=== PATIENT | female | born 1955 | race African-American/Black ===

== ENCOUNTER 2018-06-19 17:24 | Inpatient (IN) | payer OTHER ==
[~2018-06-19] VITALS: Ht 157.5 cm; Wt 140.4 kg
--- NOTE | ~2018-06-19 | H ---
[facility] [place] [address] HISTORY AND PHYSICAL Name: ANNE TSANG Room #: 464-P ADM IN M.R.#: [id number] Admission: 06/19/18 Attend Phys: Wally Hussein MD Discharge: Date of : 55 Report #: [id number] THIS REPORT FOR: //name// CC: Wally Hussein DATE OF SERVICE: 06/19/2018 CHIEF COMPLAINT: Continued nausea and abdominal pain despite being treated for diverticulitis. HISTORY OF PRESENT ILLNESS: She developed mid abdominal pain and went to the [facility] Emergency Room last week on 06/11/2018. She was diagnosed with acute early diverticulitis and given two oral antibiotics and hydrocodone. Since that time, she has remained nauseated and continues to throw up at times and not being able to eat. She continues to have the same abdominal pain that she had when in the Emergency Room. The only record available to me from that visit is a report of her abdominal CT scan that shows minimal early inflammatory changes within a specific sigmoid colonic diverticulum that was concerning for early acute diverticulitis. There was no pericolonic fluid collection or air to suggest a more advanced process. Colonic diverticulosis was seen. Her prescription bottles included metronidazole 500 mg 4 times daily for 7 days, which she has completed, and even after not having that medication today she still feels nauseated. Ciprofloxacin 500 mg twice daily and she has 3 more days' worth in her bottle. She was given hydrocodone 5/325, 20 tablets to take as needed for pain and that bottle is empty. Ondansetron 8 mg oral dissolving tablet and she has 1 left, it has not been helpful. In the office today she continues to have the same abdominal pain that she has had all along. It is in the mid epigastric area. It is constant. Her bowel movements are "pasty." The nausea is low level and persistent. PAST MEDICAL HISTORY: She has morbid obesity with a body mass index of 58.6, weighing 310 pounds and measured 5 feet 1-1/2 inches in the office today. She had an umbilical hernia repair. She had a total abdominal hysterectomy for uterine cancer in 1982. The hernia repair was in 05/2004 at [facility]. She has generalized arthritis in both knees (one has been operated on). She has right hip pain. She has hypertension and gout. She has had mildly elevated glucose and an elevated hemoglobin A1c of 6.0. 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 [address] [address] HISTORY AND PHYSICAL Name: ANNE TSANG Room #: 464-P [facility] IN .R.#: [id number] Admission: 06/19/18 Attend Phys: Wally Hussein MD Discharge: Date of : 55 Report #: [id number] History of stomach ulcer 30 years in the past. Cardiac catheterizations in 2004 and 2008 at [facility] were negative for coronary artery disease. Mildly chronically elevated alkaline phosphatase. Left knee meniscal root tear arthroscopy 10/28/2009. On 12/08/1999, right bunionectomy. SOCIAL HISTORY: She ordinarily drinks 5 cups of coffee daily, but has not been doing so since she has been ill. She quit smoking cigarettes 20 years ago in 1997. She very rarely has an alcoholic drink. FAMILY HISTORY: Of 8 brothers and sisters, she only has one remaining living sibling. Her father of colon cancer, her mother of a stroke, there is extensive family history of diabetes, hypertension, and strokes. She has three children that are doing well. REVIEW OF SYSTEMS: In addition to the HPI above, she last week had a "gout episode," which she treated by using her allopurinol on an as needed basis. She also complains of pain in the right little toe at the MTP joint. CURRENT MEDICATION LIST: Metronidazole 500 mg 4 times daily, a 7-day supply was finished yesterday; hydrocodone 5/325, #20 tablets and a 8-day supply finished several days ago, ciprofloxacin 500 mg twice daily; she has 3 more days of a 10-day supply left in her pill bottle. Ondansetron 8 mg ODT. Chronic medications: Furosemide 20 mg 1 daily, lisinopril 5 mg daily, triamterene 37.5/25 one daily, allopurinol 300 mg 1 daily should be taken routinely, but she currently takes it just when she is having a gout episode. Aleve, Tylenol, fish oil, and Advil tablets daily as needed. ALLERGIES: PENICILLIN CAUSES HIVES AND A RASH. OBJECTIVE: GENERAL: Shows a 62-year-old overweight -[place]er female who is definitely uncomfortable. VITAL SIGNS: She weighs 310 pounds, she is 5 feet 1-1/2 inches tall for a body mass index of 58.6. HEENT: The oropharynx is mildly dry. NECK: Negative. LUNGS: Clear. CARDIOVASCULAR: Heart tones are normal and the rhythm is regular. ABDOMEN: Morbidly obese. Bowel sounds are slightly diminished, but essentially normal. Over the epigastric area there is diffuse moderate tenderness to palpation, centered at the midline. Mild rebound tenderness is present as well. There does not seem to be point tenderness over the sigmoid colon, where her CT scan report indicated there was active diverticulitis on 06/11/2018. EXTREMITIES: There is mild edema of both lower extremities. The right [facility] [address] [place] [address] HISTORY AND PHYSICAL Name: ANNE TSANG Sheyla Room #: 464-P ADM IN .R.#: [id number] Admission: 06/19/18 Attend Phys: Wally Hussein MD Discharge: Date of : 55 Report #: [id number] toe MTP joint area is mildly tender, but otherwise examination of both feet is essentially normal and light touch and sensation is intact. NEUROLOGIC: Screening neurological examination is grossly intact as well. ASSESSMENT: 1. Persistent abdominal pain with nausea and vomiting for more than a week despite adequate medical therapy for the early diverticulitis that was diagnosed at the [facility] Emergency Room on 06/11/2018. 2. Acute diverticulitis, 06/11/2018. 3. Morbid obesity, body mass index over 58. 4. Right hip pain with osteoarthritis. 5. Osteoarthritis of both knees. 6. Right fifth metatarsophalangeal toe pain. 7. History of total abdominal hysterectomy for uterine cancer -- though ovaries remain (there were no adnexal masses seen on the recent CT scan). 8. Gout episode last week. 9. Hypertension -- controlled. 10. Chronically elevated hemoglobin A1c around the 6.0 range. 11. Chronic kidney disease stage 3 with an EGFR of 55 on 11/2017 baseline lab. 12. Mildly chronically elevated alkaline phosphatase of 135. 13. Chronically elevated triglycerides. 14. Low vitamin D of 9, 07/11/2017. 15. Elevated hs-CRP of 36 on office lab work. 16. Hyperuricemia with a 7.9 uric acid level 08/2017. 17. The hs-CRP was 45, 07/17/2016. 18. Fructosamine normal at 205 (190-270) 12/19/2010 with hemoglobin A1c of 6.0. PLAN: The patient has failed outpatient therapy for diagnosed acute diverticulitis, and requires further evaluation. There may be other causes of her pain. Intravenous antibiotics and fluids will be given as well as followup laboratory investigations and imaging studies. GI consultation will be considered. By: [id number] Wally Hussein MD /nt
--- NOTE | ~2018-06-19 | O ---
[facility] [place] [address] [place] [address] OPERATIVE REPORT Name: ANNE TSANG Room #: 464-P ADM IN M.R.#: [id number] Admission: 06/19/18 Attend Phys: Wally Hussein MD Discharge: Date of : 55 Report #: [id number] THIS REPORT FOR: //name// CC: Wally Hussein DATE OF SERVICE: 06/23/2018 PREOPERATIVE DIAGNOSES: Cholecystitis, acalculous with abnormal HIDA scan. POSTOPERATIVE DIAGNOSES: Cholecystitis, acalculous with abnormal HIDA scan. PROCEDURE PERFORMED: Laparoscopic cholecystectomy with cholangiogram. FINDINGS: The common bile duct filled out well. I did not see any filling defect. Cholesterolosis identified in the gallbladder. Cystic duct was difficult to cannulate, possible scarring at the cystic duct. DESCRIPTION OF PROCEDURE: With the patient under general anesthesia, timeout was performed. Abdomen was prepped and draped in sterile fashion. A 0.25% Marcaine was used to anesthetize the skin. A transverse incision was made about 2-3 inches above the umbilicus. After incising through the skin and subcutaneous tissue, the fascia was identified. Fascia was then opened under visualization between clamps. A 0 Vicryl suture was placed on the fascia. The Veress needle was then placed through the peritoneum. First, I encountered a mesh and I angled it cephalad and was able to put it into the peritoneal cavity. Abdominal cavity was insufflated by CO2. After creating pneumoperitoneum pressure of 15, 11-mm trocar was placed along the same tract into the peritoneum. Looking inferiorly, there was adhesion from her hernia repair. Two 5-mm trocars were placed in the right upper quadrant and a 5-mm trocar placed in the epigastrium. The patient was tilted with the head up and right side up. Despite the patient's body size, the view of the gallbladder was not bad. Gallbladder was lifted over the liver. I did not see any adhesion to the gallbladder. The peritoneum over the cystic duct was dissected free. The artery was medially identified and isolated. I went ahead and divided the artery since it was in the way and then clipped it x 2 proximally and 1 distally and then divided. This allowed full exposure of the critical view. Cystic duct was isolated. A clip was placed at the junction of the cystic duct to the gallbladder. Opening was made in the cystic duct. Cholangiogram catheter was placed. I was able to get the tip into the cystic duct, but could not advance it. I do not know if there is a fold there or stenosis. I was able to hold the catheter with a clip. Fluoroscopic cholangiogram was able to be performed. Contrast did flow into the cystic duct and then common duct. I did not see any filling defect in the common duct. The cholangiogram catheter was then removed. The proximal part of cystic duct was then clipped x 2. Cystic duct was then divided. Gallbladder was freed from the liver bed without difficulty. Gallbladder was then removed through the 11-mm trocar without difficulty. The [address] [address] OPERATIVE REPORT Name: ANNE TSANG Room #: 464-P [facility] IN .R#: [id number] Admission: 06/19/18 Attend Phys: Wally Hussein MD Discharge: Date of : 55 Report #: [id number] liver bed was checked, hemostasis was excellent. No bleeding identified. Clips were intact. Irrigation was aspirated out. The patient was then flattened down. Trocars removed. CO2 was evacuated as much as possible. The fascia defect and 11-mm trocar site were closed with [id number] 0 Vicryl x 2. Skin was irrigated. Skin was closed with 5-0 PDS. Steri-Strip and Band-Aids applied. The patient tolerated the procedure well. The patient was extubated and taken to the recovery room. By: [id number] [id number] Herson Perry MD /nt
--- NOTE | ~2018-06-19 | HC ---
[facility] [place] [address] [place] [address] CONSULTATION Name: ANNE TSANG Room #: 464-P ADM IN M.R.#: [id number] Admission: 06/19/18 Attend Phys: Wally Hussein MD Discharge: Date of : 55 Report #: [id number] THIS REPORT FOR: //name// CC: Wally Hussein MD DATE OF SERVICE: 06/21/2018 REASON FOR CONSULTATION: Abdominal pain and abnormal PIPIDA scan. HISTORY OF PRESENT ILLNESS: The patient is a 62-year-old who has been complaining of pain a few months ago. She thought that this resulted from eating out too much. Actually she has had some pains in the past and actually the pain does go back several years. The patient has had pain for about 2 years. The pain now is worse and more frequent episode. The pain is located in the center part of the abdomen and going up to the epigastric area and going to her back. She has associated nausea and vomiting. No particular trigger. Because of the pain in the center part of the abdomen, she thought she may have recurrence of a hernia. About a week ago, the patient was in the Emergency Room in [place]. She was diagnosed with possible diverticulitis and treated with antibiotics. Her pain persisted with the antibiotic. She does have associated bloating and increased gas. The pain is there constantly. It does get worse and it feels like very sharp, which lasts hours before it comes down. The patient had a repeat CT scan, which did not show any diverticular inflammation. Ultrasound of the gallbladder also was unremarkable. The patient had an endoscopy, which did show gastritis and duodenitis. H. pylori were negative. The patient underwent a PIPIDA scan today. She has not been getting any narcotics prior to the PIPIDA scan. PIPIDA scan showed delayed visualization of the gallbladder. At about 80 minutes after the initial injection, the patient had to be given morphine and the gallbladder then started to show up. No ejection fraction was able to be calculated due to the patient having to be given morphine. Surgery consult has been requested. PHYSICAL EXAMINATION: The patient does have an infraumbilical scar. She is tender in the upper abdomen more so in the right upper quadrant. No mass, guarding, rigidity or rebound. The patient is morbidly obese. IMPRESSION: The patient is a 62-year-old with mid and epigastric abdominal pain going to the right upper quadrant and right back. This is consistent with gallbladder attack. The pain comes in waves. It has been getting worse for the last month. I do not think she has diverticulitis. She is not tender in the left lower quadrant area. Recently, she developed a rash possibly from her Cipro. The patient's daughter had gallbladder surgery. She did not have any stones. [facility] [address] [place] [address] CONSULTATION Name: ANNE TSANG Sheyla Room #: 464-P ADM IN M.R.#: [id number] Admission: 06/19/18 Attend Phys: Wally Hussein MD Discharge: Date of : 55 Report #: [id number] RECOMMENDATION: I believe the patient has had a thorough extensive workup. There are no other tests that will be helpful with diagnosis. I think that her clinical picture is consistent with gallbladder disease. The PIPIDA scan does support gallbladder disease with delayed gallbladder visualization. I recommend the patient to undergo laparoscopic cholecystectomy and likely plan on Sunday. Her rash, which was quite severe yesterday seems to be improving. She did receive steroids. Operative procedure was discussed. Risk of procedure including bleeding, infection, common bile duct injury and bile leak was discussed. By: [id number] Herson Perry MD /nt
[~2018-06-19 17:24] MED LIST: ADIPEX-P37.5 M1 PO; ANTACID LIQUID355 ML; ASPIR-LOW81 MG PO; ASPIRIN81 M2 PO; AZITHROMYCIN 2250 MG PO; BACTRIM DS TAB1 EACH PO; BAYER BACK & B1 EACH PO; BENADRYL25 MG PO; CINNAMON PLUS1 EACH PO; CIPROFLOXACIN500 M1 PO; COQ-10100 MG PO; DIPHENHIST50 MG PO; FISH OIL 1,001000 M2 PO; FLAGYL500 MG PO; FLAXSEED1000 MG PO; HYDROCODON-ACE1 EAC7 OR; HYDROCODONE-AP1 EAC6 PO; INDOMETHACIN 2525 MG PO; LASIX 20 MG TAB20 MG PO; MAXZIDE-25 MG1 EACH PO; METFORMIN HCL500 MG PO; NAPROSYN500 MG PO; NORCO 5-325 TA1 EACH PO; ONDANSETRON ODT4 MG PO; PREDNISONE 10 M10 M1 PO; PREDNISONE 20 M20 MG PO; PREDNISONE50 MG PO; PROMETHAZINE-C120 ML PO; PROTONIX40 M1 PO; TESSALON PERLE100 MG PO; TRAMADOL 50 MG50 MG PO; TRIAMTERENE-HC1 EAC1 PO; VALACYCLOVIR1000 MG PO; VENTOLIN HFA 1818 GM INH; WOMENS VITAFUSION PO; ZOFRAN ODT4 MG PO; ZPAK PO
[2018-06-19 18:09] VITALS: BP 145/72
[2018-06-19 19:09] LABS: ABSOLUTE NEUTROPHILS 6.7 thou/uL (1.4-8.2); BASOPHILS 0.9 % (0.0-2.0); EOSINOPHILS 0.6 % (0.0-3.0); HEMATOCRIT 41.6 % (37.0-47.0); HEMOGLOBIN 13.4 gm/dL (12.0-15.0); LYMPHOCYTES 29.2 % (24.0-44.0); MCH 30.4 pg (26.0-34.0); MCHC 32.3 g/dL (28.0-37.0); MCV 94.2 fL (80.0-100.0); MONOCYTES 5.4 % (1.0-8.0); PLATELET COUNT 315 thou/uL (150-400); POLYS 63.9 % (36.0-66.0); RBC 4.41 mil/uL (4.20-5.00); RDW 16.2 % (10.5-14.5); WBC 10.5 thou/uL (4.0-11.0)
[2018-06-19 19:23] LABS: ALBUMIN 3.3 g/dL (3.4-5.0); CALCIUM 9.5 mg/dL (8.5-10.1); CREATININE 1.5 mg/dL (0.6-1.0); POTASSIUM 4.6 mmol/L (3.5-5.1); TOTAL BILIRUBIN 0.2 mg/dL (<0.1-1.0); TOTAL PROTEIN 8.6 g/dL (6.4-8.2); URIC ACID* 4.9 mg/dL (2.6-7.2)
--- NOTE | 2018-06-19 21:17 | NUR ---
PATIENT LEFT ARM ASSESSED AND REPORTED TENDER TO TOUCH AND SWOLLEN ABOVE AND BELOW IV ATTEMPT INSERTION SITE. PATIENT REPORTS THAT FINGERS ARE "NUMB AND TINGLING, BUT NOT BAD INITIALLY". PRESSURE DRESSING CONTINUED INTACT. ASSESSED LEFT FOREARM VASCULATURE BELOW AND ABOVE INSERTION SITE, COMPRESSIBLE VEINS AND PULSATING ATERY APPRECIATED AT THE ANTECUBITAL SPACE AND BELOW THE INSERTION SITE ATTEMPT. FLUID LIKE COLLECTION IN THE TISSUE DENSITIES NOTED ABOVE THE INSERTION SITE TO THE ANTECUBITAL SPACE AND BELOW THE INSERTION SITE TO THE WRIST AT THE MEDIAL ASPECT OF THE LEFT FOREARM. NOTIFIED DR SKELTON, APPLIED LIMB ALERT TO LEFT WRIST,YG BONNER NOTIFIED. PATIENT ENCOURAGED TO KEEP LEFT ARM ELEVATED ON PILLOW AND THAT DR SKELTON WAS NOTIFIED AND WOULD BE IN TONIGHT TO ASSESS HER FURTHER.
[2018-06-20 04:03] VITALS: BP 131/73
[2018-06-20 04:18] LABS: URINE BILIRUBIN NEGATIVE (Negative); URINE BLOOD NEGATIVE (Negative); URINE CLARITY CLEAR; URINE COLOR YELLOW; URINE GLUCOSE-RANDOM* NEGATIVE (Negative); URINE KETONES NEGATIVE (Negative); URINE LEUKOCYTES-REFLEX NEGATIVE (Negative); URINE NITRITE-REFLEX NEGATIVE (Negative); URINE PROTEIN (DIPSTICK) NEGATIVE (Negative); URINE SPECIFIC GRAVITY <= 1.005 (1.005-1.035); URINE UROBILINOGEN 0.2 E.U./dl (0.2-1.0)
[2018-06-20 05:12] LABS: GLYCOHEMOGLOBIN (HGB A1C) 6.1 % (4.8-5.6)
[2018-06-20 07:09] LABS: HEMATOCRIT 36.2 % (37.0-47.0); HEMOGLOBIN 11.7 gm/dL (12.0-15.0); MCHC 32.4 g/dL (28.0-37.0); MCV 92.7 fL (80.0-100.0); RBC 3.9 mil/uL (4.20-5.00); RDW 15.9 % (10.5-14.5); WBC 9.9 thou/uL (4.0-11.0)
[2018-06-20 07:23] LABS: ALBUMIN 3.1 g/dL (3.4-5.0); CALCIUM 9.2 mg/dL (8.5-10.1); CREATININE 1.5 mg/dL (0.6-1.0); POTASSIUM 4.7 mmol/L (3.5-5.1); TOTAL BILIRUBIN 0.3 mg/dL (<0.1-1.0); TOTAL PROTEIN 7.9 g/dL (6.4-8.2)
--- NOTE | 2018-06-20 16:31 | NUR ---
PT ADMITTED RELATED TO ABDOMINAL PAIN, DIVERTICULITIS. CM REVIEWED CHART AND SPOKE WITH CARE TEAM. CM MET WITH PT AT BEDSIDE THIS DAY. PT IS A&O X4. CM ROLE INTRODUCED PT INDICATED SHE LIVES IN A HOUSE WITH HER DTR WITH 2 STEPS TO ENTER AND NO STEPS INSIDE. 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 PT HAS ACCESS TO WALKER SHOULD SHE NEED IT. PT PLANS TO RETURN HOME ONCE MEDICALLY STABLE. CM TO FOLLO INDICATED WITH DC PLANNING.
[2018-06-20 16:51] VITALS: BP 146/72
--- NOTE | 2018-06-20 17:53 | NUR ---
TOWARDS POC PT A/O X4, VSS, AFEBRILE. PAIN MANAGED BY MEDS. PT PUT ON CDIFF PRECAUTIONARY ISOLATION, STOOL SAMPLE SENT TO THE LAB. PT HAD EGD TODAY RESULTS ARE IN. PT WILL BE NPO TONIGHT FOR ABD. CT SCAN. NO CONCERNS VOICED WILL CONTINUE TO MONITOR.
[2018-06-20 19:58] VITALS: BP 141/70
[2018-06-21 04:11] VITALS: BP 140/71
[2018-06-21] MEDS ORDERED: LIPITOR80 MG PO (04:50)
[2018-06-21] MEDS ORDERED: TRAZODONE HCL100 MG PO (04:50)
[2018-06-21] MEDS ORDERED: LASIX 20 MG TAB20 MG PO (04:51)
[2018-06-21] MEDS ORDERED: OMEPRAZOLE40 MG PO (04:51)
[2018-06-21] MEDS ORDERED: DOXYCYCLINE 10100 MG PO (04:52)
[2018-06-21] MEDS ORDERED: NEURONTIN 300300 M1 PO ×3 (04:53→05:02)
[2018-06-21] MEDS ORDERED: EFFEXOR XR37.5 MG PO (04:54)
[2018-06-21] MEDS ORDERED: RESTORIL30 MG PO (04:55)
[2018-06-21] MEDS ORDERED: FUROSEMIDE 20 M20 M1 PO (04:55)
[2018-06-21] MEDS ORDERED: KLOR-CON 1010 MEQ PO (04:56)
[2018-06-21] MEDS ORDERED: FISH OIL-VIT D1 EACH PO (04:58)
[2018-06-21] MEDS ORDERED: ASPIRIN81 M2 PO (04:59)
[2018-06-21] MEDS ORDERED: VITAMIN D31000 UNIT PO (05:00)
--- NOTE | 2018-06-21 05:34 | NUR ---
2230 - PT C/O ITCHING ON CHEST. ASSESSMENT REVEALED WARM RED CHEST AND A BLISTERED AREA ON LOWER NECK. BLISTERS REMAINED CLOSED. NOTIFIED DR SKELTON. NEW ORDERS RECEIVED TO D/C IV CIPRO AND FLAGYL. AND TO GIVE SOLUMEDROL IV AND IV BENADRYL. 2300 - GAVE SOLUMEDROL AND BENADRYL. PT TOLERATED WELL. 0130 - ITCHING DECREASED. DR SKELTON CALLED TO CHECK ON PT AND ORDERED REPEAT DOSE OF SOLUMEDROL FOR 0600. 0530 - PT RESTED WELL THE REST OF THE NIGHT. NO ITCHING NOTED. SKIN REMAINS INTACT.
[2018-06-21 06:03] LABS: ALBUMIN 2.8 g/dL (3.4-5.0); DIRECT BILIRUBIN < 0.1 mg/dL (<0.1-0.3); LIPASE 140 U/L (73-393); SGOT 12 U/L (15-37); SGPT 16 U/L (30-65); TOTAL BILIRUBIN 0.2 mg/dL (<0.1-1.0); TOTAL PROTEIN 6.7 g/dL (6.4-8.2)
[2018-06-21 07:15] VITALS: BP 142/74
[2018-06-21 08:04] LABS: CALCIUM 8.5 mg/dL (8.5-10.1); CREATININE 1.4 mg/dL (0.6-1.0); POTASSIUM 5.5 mmol/L (3.5-5.1)
--- NOTE | 2018-06-21 12:16 | NUR ---
VASCULAR ACCESS ASSESSED PT'S LEFT FA, SLIGHTLY BRUISED, TENDER AND SOFT. DENIES NUMBNESS AND /OR TINGLING AT PRESENT
[2018-06-21 12:38] LABS: CALCIUM 8.7 mg/dL (8.5-10.1); CREATININE 1.2 mg/dL (0.6-1.0); POTASSIUM 5.2 mmol/L (3.5-5.1)
--- NOTE | 2018-06-21 14:55 | NUR ---
IF PT IS TO DICHARGE HOME OVER THE WEEKEND AND NEED HOME HEALTH FAX REFERRAL TO [facility] AT .
[2018-06-21 16:41] VITALS: BP 156/81
--- NOTE | 2018-06-21 18:44 | NUR ---
ASSUMED CARE AT 0700. AXOX4. ABDOMEN ULTRASOUND COMPLETED. NM HEPATOBILIARY SCAN COMPLETED. PUT BACK ON SOFT/FIBER RESTRICTED DIET. WITH PIPITA ABNORMAL RESULTS, SURGEON WAS CONSULTED. NO S/S ACUTE DISTRESS NOTED OR REPORTED AT THIS TIME.
[2018-06-21 19:46] VITALS: BP 151/78
[2018-06-22 04:15] VITALS: BP 137/67
--- NOTE | 2018-06-22 06:26 | NUR ---
ASSUME PT CARE 0230. PT SLEEPING IN BED COMFORTABLY. VSS. PT SHOWS NO SIGNS OF DISTRESS. WILL CONTINUE OC UNTIL EOS.
[2018-06-22 09:01] VITALS: BP 141/70
[2018-06-22 11:18] LABS: HEMATOCRIT 33.2 % (37.0-47.0); HEMOGLOBIN 10.8 gm/dL (12.0-15.0); MCH 30.1 pg (26.0-34.0); MCHC 32.4 g/dL (28.0-37.0); MCV 92.8 fL (80.0-100.0); RBC 3.57 mil/uL (4.20-5.00); RDW 15.9 % (10.5-14.5); WBC 15.5 thou/uL (4.0-11.0)
[2018-06-22 11:29] LABS: CALCIUM 8.5 mg/dL (8.5-10.1); CREATININE 1.3 mg/dL (0.6-1.0)
[2018-06-22 11:35] LABS: POTASSIUM 4.1 mmol/L (3.5-5.1)
--- NOTE | 2018-06-22 14:14 | NUR ---
ASSUMED CARE AT 0700. AXOX4. EVAL BY COVERING FOR COSTA AND MICHAEL, GENERAL SURGERY. PT WILL GO TO [facility] WITH TOMORRW AT 10. CONSENT IS SINGED AND FILED IN PT'S CHART. ELEVATED WBC DISCUSSED WITH . PER , PROBABLY DUE TO PREVIOUS STEROID TX. NO S/S ACUTE DISTRESS NOTED OR REPORTED AT THIS TIME. WILL CONT TO MONITOR ANY CHANGES IN CONDITION.
[2018-06-22 17:12] VITALS: BP 150/65
[2018-06-22 20:30] VITALS: BP 139/60
[2018-06-23] VITALS (11 sets, daily range): BP systolic 127–189; BP diastolic 62–121
--- NOTE | 2018-06-23 07:25 | NUR ---
NPO SINCE MIDNIGHT. PO PRN PAIN MED X 1 EFFECTIVE FOR DISCOMFORT. NO NAUSEA. PERMIT SIGNED FOR SURGERY. UP AD YING IN ROOM.
--- NOTE | 2018-06-23 16:53 | NUR ---
ASSUMED PT CARE AT 0645. PT WENT DOWNSTAIRS FOR LAP NATHANIEL. SHE IS HAVING PAIN FROM LAP SITES AND SOME NAUSEA WHICH IS BEING CONTROLED WITH MEDICATION. WILL CONTINUE TO [facility]
[2018-06-23] MEDS ORDERED: ZYLOPRIM300 MG PO (20:40)
[2018-06-23] MEDS ORDERED: LISINOPRIL5 MG PO (20:40)
[2018-06-23] MEDS ORDERED: MAXZIDE-25 MG1 EACH PO (20:40)
[2018-06-23] MEDS ORDERED: ZOFRAN ODT4 MG DISSOLVE (20:43)
--- NOTE | 2018-06-24 01:46 | NUR ---
BP 179/65 AT 2015. FAINT WHEEZES IN BILATERAL BASES. NO SHORTNESS OF BREATH. REVIEWED, UPDATED HOME MEDICATION LIST WITH PATIENT. I NOTIFIED DR MG OF ELEVATED BP. IV SALINE LOCKED, TOLERATING PO WELL. GIVEN NORVASC X 1, DAILY DOSE OF LISINOPRIL PER ORDER. DISCUSSED WITH PATIENT, DAUGHTER WHO WAS AT BEDSIDE. RECHECKED BP AT 2300 = 189/90. CONTINUING TO HAVE UNRELIEVED PAIN SINCE PREVIOUSLY GIVEN FENTANYL. GIVEN HYDROCODONE PO, WENT TO SLEEP AFTER DOSE GIVEN.
[2018-06-24 03:39] VITALS: BP 151/81
--- NOTE | 2018-06-24 06:02 | NUR ---
BP THIS MORNING IMPROVEMENT SINCE LAST NIGHT, CURRENTLY 151/81. PULSE OX 97% ON ROOM AIR, OXYGEN DCD. CONTINUES TO USE INCENTIVE SPIROMETER. TOLERATING PO WELL. SCDS ON. RECEIVED LOVENOX SQ THIS AM, DISCUSSED PURPOSE OF MED. STAND BY ASSIST TO AMBULATE IN ROOM, TO BATHROOM.
[2018-06-24 08:00] VITALS: BP 163/72
[2018-06-24] MEDS ORDERED: NORCO 5-325 TA1 EACH PO (09:08)
--- NOTE | 2018-06-24 13:07 | PATH ---
[facility] [place] [address] PATHOLOGY RPT PROCEDURE Name: PREETI TSANG Sheyla Room #: 464-P ADM IN M.R.#: [id number] Admission: 06/19/18 Date of : 55 Discharge: Report #: [id number] Path Case #: [id number] [facility] Accession Number: [id number] . 01 Material submitted: . PART A: BX DUODENUM PART B: BX GASTRIC . 01 Clinical history: . Pre-OP DX: Nausea with vomiting, abdominal pain Post-OP DX: Gastritis, hiatal hernia, duodenitis . 02 Diagnosis: A. Small bowel mucosa, duodenum, endoscopic biopsy: - Changes compatible with mild active peptic duodenitis showing focal mild villous blunting. (Please see comment) - Focal ulceration present. - Negative for increase in intraepithelial lymphocytes. . B. Small bowel mucosa, gastritis R/O H. pylori, endoscopic biopsy: - Mild reactive gastropathy. - Negative for intestinal metaplasia or atrophy. - Negative for Helicobacter pylori (properly controlled immunohistochemical stain performed). (IUV:jose; 06/21/2018) QMS/06/21/2018 . 02 Comment: Examination of the small bowel mucosa designated "duodenum" shows active inflammation along with mild chronic inflammation in a background of fundic-type metaplasia. Changes are compatible with peptic duodenitis. Focal ulceration is identified within the sample as well. There is mild villous blunting present in association with the duodenitis. There is no increase in intraepithelial lymphocytes. Findings are suggestive of villous blunting secondary to peptic duodenitis. There is no dysplasia or malignancy present. (IUV:jose; 06/21/2018) . 02 Electronically signed: . Elise Noble MD, Pathologist NPI- [id number] . 01 Gross description: . A. Received in formalin labeled "Preeti Tsang, BX duodenum," are 2 segments of paez soft tissue measuring 0.5 x 0.2 x 0.2 cm in aggregate dimensions and ranging from 0.2 to 0.3 cm in maximum dimension. The specimen is submitted entirely in [place] [address] PATHOLOGY RPT PROCEDURE Name: PREETI TSANG Room #: 464-P ADM IN M.R.#: [id number] Admission: 06/19/18 Date of : 55 Discharge: Report #: [id number] Path Case #: [id number] . B. Received in formalin labeled "Natacha, Preeti, BX gastritis, rule out H. pylori," is a single segment of paez soft tissue measuring 0.5 cm in maximum dimension. The specimen is entirely submitted in cassette B1. (TSD; 06/20/2018) TOB/TOB . 02 Pathologist provided ICD-10: K29.80, K31.9 . 02 CPT . 323110, 115879, J98372 Specimen Comment: A courtesy copy of this report has been sent to Specimen Comment: [phone], . Specimen Comment: Report sent to and Specimen Comment: A duplicate report has been generated due to demographic updates. Performed at: [address], [place] [id number] MD Moreno Fowler MD Phone: [phone] Performed at: [address] [id number] MD Elise Noble MD Phone: [phone]
--- NOTE | 2018-06-24 13:13 | NUR ---
CARE TEAM INDICATED THAT PT IS MEDICALLY STABLE TO DISCHARGE HOME THIS DAY. NO OTHER CM INTERVETION INDICATED AT THIS TIME. CASE CLOSED.
[2018-06-24 16:16] VITALS: BP 163/7
--- NOTE | 2018-06-24 16:48 | NUR ---
ASSUMED CARE AT 0700. AXOX4. SEEN BY AND AT BEDSIDE. RECEIVED AN ORDER TO D/C HOME. PRESCRIPTION FOR NORCO AND D/C INSTRUNCTION GIVEN TO PT AT BEDSIDE. 4LAP SITES INTACT WITH BANDAGES. IV REMOVED. AWAITING TRANSPORTATION.
--- NOTE | 2018-06-26 12:08 | PATH ---
[facility] [place] [address] PATHOLOGY RPT PROCEDURE Name: PREETI TSANG Room #: 464-P DIS IN M.R.#: [id number] Admission: 06/19/18 Date of : 55 Discharge: 06/24/18 Report #: [id number] Path Case #: [id number] LCA Accession Number: [id number] . 01 Material submitted: . GALLBLADDER . 01 Clinical history: . Cholecystitis . 02 Diagnosis: Gallbladder, cholecystectomy: - Mild chronic cholecystitis. (IUV:pit 06/25/2018) QTP/06/25/2018 . 02 Electronically signed: . Elise Noble MD, Pathologist NPI- [id number] . 01 Gross description: . The specimen is received in formalin, labeled "Preeti Tsang gallbladder". Received is a previously opened gallbladder measuring 7.5 x 2.4 x 1.0 cm in greatest dimensions displaying bile-stained serosal surfaces. Opening the gallbladder reveals a velvety, light paez mucosa with a gallbladder wall thickness of 0.1 cm. Calculi are not present and no masses or lesions are noted grossly. Casting Cleaner sections, to include the proximal margin, are submitted in cassette A1. (CAA; 06/24/2018) QAC/QAC . 02 Pathologist provided ICD-10: K81.1 . 02 CPT . 109828 Specimen Comment: A courtesy copy of this report has been sent to Specimen Comment: [phone], . Specimen Comment: Report sent to / DR GUERRERO Specimen Comment: A duplicate report has been generated due to demographic updates. Performed at: 01 [place] [id number] [id number] MD Moreno Fowler MD Phone: [phone] Performed at: 02 [facility] [address] [place] [address] PATHOLOGY RPT PROCEDURE Name: PREETI TSANG Sheyla Room #: 464-P DIS IN M.R.#: [id number] Admission: 06/19/18 Date of : 55 Discharge: 06/24/18 Report #: [id number] Path Case #: [id number] [address] [place] [id number] MD Elise Noble MD Phone: [phone]
== END 2018-06-24 18:15 | disposition home or self-care (01) | DRG 418 ==
LOC: 4W 17:24
PROVIDERS: Internal Medicine Gastroenterology; ADMIT Internal Medicine
DX: K81.9 Cholecystitis, unspecified (principal); Z68.43 Body mass index [BMI] 50.0-59.9, adult; K57.92 Diverticulitis of intestine, part unspecified, without perforation or abscess without bleeding; K29.80 Duodenitis without bleeding; K29.70 Gastritis, unspecified, without bleeding; K82.8 Other specified diseases of gallbladder; E66.01 Morbid (severe) obesity due to excess calories; M17.0 Bilateral primary osteoarthritis of knee; M10.9 Gout, unspecified; G51.0 Bell's palsy; M16.11 Unilateral primary osteoarthritis, right hip; L27.0 Generalized skin eruption due to drugs and medicaments taken internally; M79.674 Pain in right toe(s); N18.3 Chronic kidney disease, stage 3 (moderate); E78.1 Pure hyperglyceridemia; E79.0 Hyperuricemia without signs of inflammatory arthritis and tophaceous disease; E55.9 Vitamin D deficiency, unspecified; I12.9 Hypertensive chronic kidney disease with stage 1 through stage 4 chronic kidney disease, or unspecified chronic kidney disease; Z87.891 Personal history of nicotine dependence; Z85.42 Personal history of malignant neoplasm of other parts of uterus; Z87.11 Personal history of peptic ulcer disease; Z90.710 Acquired absence of both cervix and uterus; Z79.899 Other long term (current) drug therapy; Z88.0 Allergy status to penicillin; Z88.1 Allergy status to other antibiotic agents; Z88.8 Allergy status to other drugs, medicaments and biological substances; Z80.0 Family history of malignant neoplasm of digestive organs; Z82.3 Family history of stroke; Z82.49 Family history of ischemic heart disease and other diseases of the circulatory system; Z83.3 Family history of diabetes mellitus; Z28.21 Immunization not carried out because of patient refusal
CPT/HCPCS: 10047; 50101; 50411; 50445; 50555; 50558; 50804; 51489; 53307; 53310; 55245; 55317; 56462; 56525; 56526; 62110; 62900; 65130; 70005

== ENCOUNTER 2018-07-04 21:56 | Inpatient (IN) | payer OTHER ==
[~2018-07-04] VITALS: Ht 5.1 cm; Wt 138.3 kg
--- NOTE | ~2018-07-04 | H ---
[facility] [place] [address] HISTORY AND PHYSICAL Name: ANNE TSANG Room #: 427-P ADM IN M.R.#: [id number] Admission: 07/05/18 Attend Phys: Wally Hussein MD Discharge: Date of : 55 Report #: [id number] THIS REPORT FOR: //name// CC: Herson Hussein DATE OF SERVICE: 07/05/2018 CHIEF COMPLAINT: Nausea, vomiting and abdominal pain. HISTORY OF PRESENT ILLNESS: The patient presented with similar symptoms on 06/19/2018. She underwent several evaluations, one of which was an EGD by Dr. Sania Rodriguez that showed erythema throughout the proximal duodenum. There was mild patchy erythema of the prepyloric area, but the rest of the stomach was normal as was the entire esophagus. It was Dr. Rodriguez's impression that the mild degree of these changes did not explain the extensive symptoms that the patient had, so the gallbladder was pursued. The gallbladder ejection fraction was abnormal, although the visualization of the gallbladder was delayed and the actual ejection fraction portion could not be performed. She subsequently underwent a cholecystectomy and that did well and was discharged. The pathology specimen showed mild chronic cholecystitis, and this was felt to be the cause of her symptoms. For this reason, she was not discharged on a proton pump inhibitor. Pathology did show duodenum to have changes compatible with mild active peptic duodenitis with some focal ulceration present. Gastric biopsy showed mild reactive gastropathy and was negative for intestinal metaplasia and negative for Helicobacter pylori. At home, she states that she in general did well but still had intermittent episodes of abdominal pain and nausea. The symptoms would completely go away at times and she felt that she was on the road to recovery then. However, last night, the symptoms became more prominent and did not resolve and she had persistent nausea and vomiting and diffuse upper abdominal pain. When she was evaluated in the Emergency Room, the CT findings were essentially normal, in that there was a very small collection of fluid at the area of the larger of the incisions, felt to be a seroma. The rest of the CT was unremarkable. Because of her symptoms and inability to keep food and fluids and medications down, hospitalization and admission was indicated with IV fluids and IV medications. HOME MEDICATIONS: She reported continuing to take her allopurinol 300 mg daily, furosemide 20 mg daily for her leg edema, lisinopril 5 mg daily and triamterene 37.5/25 mg of hydrochlorothiazide. [address] [address] HISTORY AND PHYSICAL Name: ANNE TSANG Room #: 427-P ADM IN .R.#: [id number] Admission: 07/05/18 Attend Phys: Wally Hussein MD Discharge: Date of : 55 Report #: [id number] ALLERGIES: PENICILLINS, CIPROFLOXACIN and METRONIDAZOLE. REVIEW OF SYSTEMS: Negative other than the HPI above. PHYSICAL EXAMINATION: GENERAL: Shows a 62-year-old -Italian woman, in moderate distress in her hospital bed. HEENT: Unremarkable except for mildly dry mucosa. LUNGS: Clear. CARDIOVASCULAR: S1 and S2 are normal. The rhythm is regular. There is a small amount of redness in the upper chest and the acute rash, that she now feels may be from either latex or perhaps the telemetry electrode patches. ABDOMEN: Soft, mildly diffusely tender in the upper portions. The four small incisions from the laparoscopic procedure are all healing well and not especially tender. The presence or absence of organosplenomegaly is not discernible given the patient's body habitus. There is no edema in the lower extremities. NEUROLOGICAL: Screening neurological examination shows no focal neurological deficits. LABORATORY DATA: Sodium is mildly low at 133; BUN is stable at 21; creatinine is mildly elevated at 1.6 compared to baseline of 1.2 and glucose is 122, which is slightly lower than previous values. Albumin is low at 3.2. Alkaline phosphatase minimally elevated at 135. Troponin is negative. Lactic acid is negative. White blood cell count is mildly elevated at 12.5 thousand, although it was 15,000 day after surgery. The hemoglobin is 11.4, which is up from 10.8 at the time of discharge. Hepatitis B, C and HIV antibody studies are negative. Urinalysis is negative. RADIOLOGICAL DATA: CT scan of the abdomen and pelvis notes normal cholecystectomy, bile duct prominence. A small amount of fluid is present in the incision of the hernia repair and may represent a seroma or be related to the gallbladder surgery. Numerous diverticula are seen without evidence of acute inflammation, anterolisthesis of L4 on L5 is present with facet arthropathy and unchanged from the previous study of 06/19/2018. ASSESSMENT: 1. Persistent lower level nausea and vomiting and abdominal pain after her surgery, with: 1. Dehydration. 2. Uneventful laparoscopic cholecystectomy on 06/23/2018 with mild chronic cholecystitis being seen on the pathology report. 3. Duodenal erythema, patchy mild prepyloric erythema with otherwise completely [facility] [address] [place] [address] HISTORY AND PHYSICAL Name: ANNE TSANG Room #: 427-P [facility] IN Juli#: [id number] Admission: 07/05/18 Attend Phys: Wally Hussein MD Discharge: Date of : 55 Report #: [id number] esophagogastroduodenoscopy on 06/20/2018 showing mild active peptic duodenitis with focal ulceration and mild reactive gastropathy (negative for intestinal metaplasia, negative for Helicobacter pylori) on pathology report. 4. Uncontrolled hypertension. 5. History of gout. 6. Morbid obesity with body mass index of 58. 7. Total abdominal hysterectomy for uterine cancer in 1982 without evidence of recurrence. 8. Umbilical hernia repair in May 2004 at [facility]. 9. Mild generalized arthritis of both knees. 10. Right hip pain. 11. Mildly elevated glucose with a hemoglobin A1c of 6.0. 12. 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 13. History of stomach ulcer 30 years in the past. 14. Cardiac catheterization in 2004 and 2008 at [facility] were negative for coronary artery disease. 15. Left knee meniscal root tear at arthroscopy on 10/28/2009. 16. On 12/08/1999, right bunionectomy. PLAN: The most likely explanation for her current symptoms is that of active peptic duodenitis and distal gastritis. Intravenous proton pump inhibitors and famotidine will be started along with oral Carafate. These will be switched early to oral medications. A GI consultation will be requested to see if any important details or other possible diagnoses should be considered. IV fluids for the dehydration. By: 32 10 Wally Hussein MD /nt
[~2018-07-04 21:56] MED LIST changes: +DOXYCYCLINE 10100 MG PO; +EFFEXOR XR37.5 MG PO; +FISH OIL-VIT D1 EACH PO; +FUROSEMIDE 20 M20 M1 PO; +KLOR-CON 1010 MEQ PO; +LIPITOR80 MG PO; +LISINOPRIL5 MG PO; +NEURONTIN 300300 M1 PO; +OMEPRAZOLE40 MG PO; +RESTORIL30 MG PO; +TRAZODONE HCL100 MG PO; +VITAMIN D31000 UNIT PO; +ZOFRAN ODT4 MG DISSOLVE; +ZYLOPRIM300 MG PO
[2018-07-04 22:44] VITALS: BP 185/83
[2018-07-04] MEDS ORDERED: TETRACYCLINE H250 MG PO (22:49)
[2018-07-04 23:21] LABS: HEMATOCRIT 35.1 % (37.0-47.0); HEMOGLOBIN 11.4 gm/dL (12.0-15.0); MCH 30.2 pg (26.0-34.0); MCHC 32.5 g/dL (28.0-37.0); MCV 93.1 fL (80.0-100.0); RBC 3.78 mil/uL (4.20-5.00); RDW 15.6 % (10.5-14.5); WBC 12.5 thou/uL (4.0-11.0)
[2018-07-04 23:28] LABS: ANION GAP 11 mmol/L (7-16); BUN 21 mg/dL (7-18); CALCIUM 8.7 mg/dL (8.5-10.1); CHLORIDE 99 mmol/L (98-107); CO2 23 mmol/L (21-32); CREATININE 1.6 mg/dL (0.6-1.0); GLUCOSE 122 mg/dL (74-106); POTASSIUM 4.3 mmol/L (3.5-5.1); SODIUM 133 mmol/L (136-145)
[2018-07-04 23:36] LABS: URINE BILIRUBIN NEGATIVE (Negative); URINE BLOOD NEGATIVE (Negative); URINE CLARITY CLEAR; URINE COLOR YELLOW; URINE GLUCOSE-RANDOM* NEGATIVE (Negative); URINE KETONES NEGATIVE (Negative); URINE LEUKOCYTES-REFLEX NEGATIVE (Negative); URINE NITRITE-REFLEX NEGATIVE (Negative); URINE PROTEIN (DIPSTICK) NEGATIVE (Negative); URINE SPECIFIC GRAVITY 1.015 (1.005-1.035); URINE UROBILINOGEN 0.2 E.U./dl (0.2-1.0)
[2018-07-04 23:37] LABS: SGOT 14 U/L (15-37); SGPT 25 U/L (30-65); TOTAL BILIRUBIN 0.4 mg/dL (<0.1-1.0); TOTAL PROTEIN 7.2 g/dL (6.4-8.2); TROPONIN-I <0.06 ng/mL (<0.06)
[2018-07-04 23:52] LABS: LIPASE 91 U/L (73-393)
[2018-07-04 23:58] LABS: ALBUMIN 3.2 g/dL (3.4-5.0)
[2018-07-05 01:31] VITALS: BP 124/61
[2018-07-05 01:50] VITALS: BP 124/60
[2018-07-05] MEDS ORDERED: ZYLOPRIM300 MG PO (02:08)
[2018-07-05] MEDS ORDERED: LASIX 20 MG TAB20 MG PO (02:08)
[2018-07-05 04:09] VITALS: BP 108/49
--- NOTE | 2018-07-05 08:17 | EKG ---
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 : 1955 Requested By: Melissa Vidal Order Number: [id number] MD: Reji Bhatti Measurements Intervals [place] Rate: 88 P: 39 IA: 190 QRS: -5 QRSD: 85 T: 3 QT: 353 QTc: 427 Interpretive Statements Sinus rhythm Probable left atrial enlargement Abnormal R-wave progression, early transition Left ventricular hypertrophy Compared to ECG 07/29/2016 19:35:27 Left ventricular hypertrophy now present T-wave abnormality no longer present Electronically Signed On 07-05-2018 8:16:50 SOCIAL SCIENCES LECTURER by Reji Bhatti [email or web address] <ELECTRONICALLY SIGNED> By: Reji Bhatti MD 07/05/18 0816 2240 2240 Reji Bhatti MD /EPI
[2018-07-05 08:19] VITALS: BP 99/45
[2018-07-05 16:08] LABS: HBsAG-EMPLOYEE EXPOSURE Negative (Negative); HCV AB-EMPLOYEE EXPOSURE 0.2 (0.0-0.9)
[2018-07-05 16:30] VITALS: BP 109/50
[2018-07-05 19:45] VITALS: BP 137/80
[2018-07-06 05:29] VITALS: BP 128/61
[2018-07-06 06:07] LABS: HEMOGLOBIN 10.2 gm/dL (12.0-15.0); MCHC 31.7 g/dL (28.0-37.0); MCV 94.5 fL (80.0-100.0); RBC 3.39 mil/uL (4.20-5.00); RDW 15.6 % (10.5-14.5)
[2018-07-06 06:21] LABS: ALBUMIN 2.8 g/dL (3.4-5.0); CALCIUM 8.8 mg/dL (8.5-10.1); CREATININE 1.5 mg/dL (0.6-1.0); MAGNESIUM 1.8 mg/dL (1.8-2.4); POTASSIUM 4.4 mmol/L (3.5-5.1); TOTAL BILIRUBIN 0.3 mg/dL (<0.1-1.0); TOTAL PROTEIN 7.2 g/dL (6.4-8.2)
[2018-07-06 07:52] VITALS: BP 125/54
[2018-07-06 19:47] VITALS: BP 146/76
[2018-07-07 07:45] VITALS: BP 152/75
[2018-07-07 22:53] VITALS: BP 116/63
[2018-07-08 09:00] VITALS: BP 122/63
[2018-07-08] MEDS ORDERED: HYDROCODONE-AP1 EAC6 PO (18:14)
[2018-07-08] MEDS ORDERED: HYOSCYAMINE0.125 M1 PO (18:16)
[2018-07-08] MEDS ORDERED: PROTONIX40 M1 PO (18:19)
[2018-07-08 18:57] VITALS: BP 122/63
--- NOTE | 2018-07-10 17:07 | PATH ---
[facility] [address] [address] PATHOLOGY RPT PROCEDURE Name: PREETI TSANG Room #: 227-P DIS IN M.R.#: [id number] Admission: 07/05/18 Date of : 55 Discharge: 07/08/18 Report #: [id number] Path Case #: [id number] [facility] Accession Number: [id number] . 01 Material submitted: . PART A: POLYP AT ASCENDING COLON X2 PART B: RANDOM RIGHT COLON BX PART C: RANDOM LEFT COLON BX PART D: POLYP AT TRANSVERSE COLON . 01 Clinical history: . Pre-op diagnosis: N/V, abdominal pain Post-op diagnosis: Colon polyps . 02 Diagnosis: A. Polyp x2, ascending colon, endoscopic biopsy: - Tubular adenoma identified in two fragments. - Negative for high-grade dysplasia. . B. Large intestinal mucosa, random right colon, endoscopic biopsy: - Mild focal active colitis. - Negative for dysplasia or malignancy. . C. Large intestinal mucosa, random left colon, endoscopic biopsy: - Mild focal active colitis associated with hyperplastic changes. - Negative for dysplasia or malignancy. . D. Polyp, transverse colon, endoscopic biopsy: - Tubular adenoma identified in multiple fragments. - Negative for high-grade dysplasia. (IUV:jose; 07/10/2018) QMS/07/10/2018 . 02 Comment: Sections of the colonic mucosa designated "random right colon and random left colon" show focal cryptitis, and a moderately cellular lamina propria composed predominantly of lymphocytes and plasma cells and occasional eosinophils. Surface ulceration is not identified. There are no crypt abscesses, granulomas or viral inclusions. The process affects all the fragments with a similar intensity. Given the description, the differential diagnosis includes mild focal active colitis due to self-limited etiology, infectious-type of etiology, acute diverticulitis, as well as medication-induced colitis. Please correlate with clinical as well as endoscopic findings. (IUV:jose; 07/10/2018) . 02 Electronically signed: [place] [address] PATHOLOGY RPT PROCEDURE Name: SHARANPREETI R Room #: 227-P DIS IN M.R.#: [id number] Admission: 07/05/18 Date of : 55 Discharge: 07/08/18 Report #: [id number] Path Case #: [id number] Elise Noble MD, Pathologist NPI- [id number] . 01 Gross description: . A. The specimen is received in formalin, labeled "Preeti Tsang, polyp at ascending colon x2". Received are two segments of pale paez soft tissue measuring 0.4 and 0.5 cm in maximum. The specimen is submitted entirely in cassette A1. . B. The specimen is received in formalin, labeled "Preeti Tsang, random right colon biopsy". Received are seven segments of pale paez soft tissue ranging in size from 0.2 to 1.3 cm in maximum dimensions. The specimen is submitted entirely in cassette B1. . C. The specimen is received in formalin, labeled "Preeti Tsang, random left colon biopsy". Received are three segments of pale paez soft tissue measuring 0.5 cm each in maximum dimensions. The specimen is submitted entirely in cassette C1. . D. The specimen is received in formalin, labeled "Preeti Tsang, polyp at transverse colon". Received are three segments of pale paez soft tissue ranging in size from 0.3 to 0.5 cm in maximum dimensions. The specimen is submitted entirely in cassette D1. (CAA; 07/09/2018) QAC/QAC . 02 Pathologist provided ICD-10: D12.2, K52.9, D12.3 . 02 CPT . 303788, 295814, 393230, 106758 Specimen Comment: A courtesy copy of this report has been sent to Specimen Comment: [phone], . Specimen Comment: Report sent to / DR SKELTON Performed at: [address] [facility] [address], [place], [place] [id number] MD Moreno Fowler MD Phone: [phone] Performed at: [address] [facility] [address] [id number] MD Elise Noble MD Phone: [phone]
== END 2018-07-08 19:43 | disposition home or self-care (01) | DRG 392 ==
LOC: ER 21:56 → 4E 07-05 01:24 → EROBS 07-05 01:24 → 4E 07-05 01:39 → SICU 07-06 11:20
PROVIDERS: Student in an Organized Health Care Education/Training Program; ADMIT Internal Medicine
PROC: 0DBL8ZZ Excision of Transverse Colon, Via Natural or Artificial Opening Endoscopic (ICD-10-PCS; principal; 2018-07-07)
PROC: 0DBK8ZZ Excision of Ascending Colon, Via Natural or Artificial Opening Endoscopic (ICD-10-PCS; principal; 2018-07-07)
PROC: 0DBE8ZX Excision of Large Intestine, Via Natural or Artificial Opening Endoscopic, Diagnostic (ICD-10-PCS; principal; 2018-07-07)
DX: K29.70 Gastritis, unspecified, without bleeding (principal); Z68.43 Body mass index [BMI] 50.0-59.9, adult; K29.80 Duodenitis without bleeding; E86.9 Volume depletion, unspecified; E86.0 Dehydration; I10 Essential (primary) hypertension; E66.01 Morbid (severe) obesity due to excess calories; K57.30 Diverticulosis of large intestine without perforation or abscess without bleeding; M17.0 Bilateral primary osteoarthritis of knee; D12.2 Benign neoplasm of ascending colon; D12.3 Benign neoplasm of transverse colon; M25.551 Pain in right hip; G51.0 Bell's palsy; Z87.11 Personal history of peptic ulcer disease; Z90.710 Acquired absence of both cervix and uterus; Z90.49 Acquired absence of other specified parts of digestive tract; Z87.891 Personal history of nicotine dependence; Z79.899 Other long term (current) drug therapy; Z88.0 Allergy status to penicillin; Z88.1 Allergy status to other antibiotic agents; Z88.8 Allergy status to other drugs, medicaments and biological substances; Z82.3 Family history of stroke; Z83.79 Family history of other diseases of the digestive system; Z80.0 Family history of malignant neoplasm of digestive organs
CPT/HCPCS: 10084; 15002; 62110; 62900; 70005

== ENCOUNTER 2019-09-25 14:26 | Emergency (ER) | payer OTHER ==
[~2019-09-25] VITALS: Ht 160 cm; Wt 140.6 kg
[~2019-09-25 14:26] MED LIST changes: +HYOSCYAMINE0.125 M1 PO; +TETRACYCLINE H250 MG PO
--- NOTE | 2019-09-25 15:07 | EKG ---
[facility] [place] [address] [place] [address] ELECTROCARDIOGRAM REPORT Name: ANNE TSANG Room #: PRE M.R.#: [id number] Admission: Attend Phys: Discharge: Date of : 55 Report #: [id number] THIS REPORT FOR: cc: Wally Hussein MD, Stanley P. MD Lundgren, Craig H. 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: [facility] : 1955 Requested By: Nicole Morrison Order Number: [id number] MD: David Espino Measurements Intervals [place] Rate: 70 P: 40 FL: 200 QRS: -4 QRSD: 91 T: 15 QT: 394 QTc: 426 Interpretive Statements Sinus rhythm Left ventricular hypertrophy Compared to ECG 07/04/2018 22:40:50 Early R wave progression no longer present Electronically Signed On 09-25-2019 15:05:31 CDT by David Espino [email or web address] <ELECTRONICALLY SIGNED> By: David Espino MD, [facility] 09/25/19 1505 143 143 David Espino MD, [facility] /EPI
[2019-09-25 15:46] LABS: ABSOLUTE NEUTROPHILS 7.9 thou/uL (1.4-8.2); BASOPHILS 0.7 % (0.0-2.0); EOSINOPHILS 0.6 % (0.0-3.0); HEMATOCRIT 38.7 % (37.0-47.0); HEMOGLOBIN 12.8 gm/dL (12.0-15.0); LYMPHOCYTES 18.6 % (24.0-44.0); MONOCYTES 2.5 % (1.0-8.0); PLATELET COUNT 343 thou/uL (150-400); POLYS 77.6 % (36.0-66.0); RBC 4.11 mil/uL (4.20-5.00); RDW 14.7 % (10.5-14.5); WBC 10.1 thou/uL (4.0-11.0)
[2019-09-25 16:02] LABS: ALBUMIN 3.5 g/dL (3.4-5.0); ANION GAP 4 mmol/L (7-16); CALCIUM 9.6 mg/dL (8.5-10.1); CHLORIDE 101 mmol/L (98-107); CO2 31 mmol/L (21-32); CREATININE 1.2 mg/dL (0.6-1.0); GLUCOSE 132 mg/dL (74-106); LIPASE 208 U/L (73-393); POTASSIUM 4.4 mmol/L (3.5-5.1); SGOT 15 U/L (15-37); SGPT 24 U/L (30-65); SODIUM 136 mmol/L (136-145); TOTAL BILIRUBIN 0.3 mg/dL (<0.1-1.0); TOTAL PROTEIN 8.8 g/dL (6.4-8.2); TROPONIN-I <0.06 ng/mL (<0.06)
[2019-09-25 16:10] LABS: BUN 21 mg/dL (7-18)
[2019-09-25] MEDS ORDERED: HYOSCYAMINE0.125 M1 PO (18:00)
[2019-09-25] MEDS ORDERED: PROTONIX40 M1 PO (18:00)
[2019-09-25] MEDS ORDERED: ZOFRAN ODT4 MG PO (18:04)
[2019-09-25 19:12] VITALS: BP 179/81
--- NOTE | 2019-09-27 11:45 | EKG ---
[facility] [place] [address] [place] [address] ELECTROCARDIOGRAM REPORT Name: ANNE TSANG Room #: DEP [facility]#: [id number] Admission: 09/25/19 Attend Phys: Discharge: 09/25/19 Date of : 55 Report #: [id number] THIS REPORT FOR: cc: Wally Hussein MD, Stanley P. MD Couchonnal, Luis F. MD ~ THIS REPORT FOR: //name// [facility] ED Test Date: 2019-09-25 Test Time: 16:21:28 Pat Name: ANNE TSANG Department: Room: Gender: Growth Hacker: [facility] : 1955 Requested By: Nicole Morrison Order Number: [id number] MD: Reji Bhatti Measurements Intervals [place] Rate: 68 P: 28 [place]: 193 QRS: -5 QRSD: 91 T: 8 QT: 391 QTc: 416 Interpretive Statements Sinus arrhythmia Left ventricular hypertrophy Compared to ECG 09/25/2019 14:31:25 Sinus rhythm no longer present Electronically Signed On 09-27-2019 11:43:54 CDT by Reji Bhatti [email or web address] <ELECTRONICALLY SIGNED> By: Reji Bhatti MD 09/27/19 1143 1621 1621 Reji Bhatti MD /EPI
== END 2019-09-25 19:13 | disposition home or self-care (01) ==
LOC: ER 14:26
PROVIDERS: Nurse Practitioner Family
DX: K29.70 Gastritis, unspecified, without bleeding (principal); R11.2 Nausea with vomiting, unspecified; R19.7 Diarrhea, unspecified; F17.210 Nicotine dependence, cigarettes, uncomplicated; Z88.0 Allergy status to penicillin; Z88.1 Allergy status to other antibiotic agents; Z88.8 Allergy status to other drugs, medicaments and biological substances; Z90.49 Acquired absence of other specified parts of digestive tract; Z90.710 Acquired absence of both cervix and uterus

== ENCOUNTER 2020-12-16 17:17 | Inpatient (IN) | payer OTHER ==
[~2020-12-16] VITALS: Ht 154.9 cm; Wt 147.9 kg
--- NOTE | 2020-12-16 18:30 | NUR ---
PT RECEIVED FROM THE REC RM AT 1810 ALERT AND IN NO ACUTE DISTRESS. PT ASSESSED AND ADMISSION COMPLETED. RECORDS SENT W/ PT FROM DR. SKELTON'S OFFICE. DR. COREY IN TO SEE PT AND READ OVER RECORDS. PT RESTING COMFORTABLY IN HER RECLINER CHAIR.
[2020-12-17 03:00] VITALS: BP 152/87
[2020-12-17 03:40] LABS: HEMATOCRIT 33.6 % (37.0-47.0); MCH 31.1 pg (26.0-34.0); MCHC 32.7 g/dL (28.0-37.0); MCV 95.3 fL (80.0-100.0); RBC 3.53 mil/uL (4.20-5.00); RDW 13.9 % (10.5-14.5); WBC 11.5 thou/uL (4.0-11.0)
[2020-12-17 03:47] LABS: CALCIUM 8.9 mg/dL (8.5-10.1); CREATININE 1.3 mg/dL (0.6-1.0); POTASSIUM 4.8 mmol/L (3.5-5.1)
[2020-12-17 07:20] VITALS: BP 155/77
--- NOTE | 2020-12-17 13:28 | NUR ---
ASSESSMENT: CM REVIEWED CHART AND SPOKE WITH PATIENT AT THE BEDSIDE. PT IS ALERT AND ORIENTED X4. PT WAS ADMITTED DUE TO HIP PAIN AND HAS HX OF OBESITY. PT REPORTS THAT SHE LIVES IN A HOUSE AND HER DAUGHTER LIVES WITH HER. PT REPORTS HAVING 2 STEPS TO ENTER THE HOME AND NO STEPS SHE USES ONCE INSIDE. PT REPORTS HAVING STEPS TO THE BASEMENT BUT DOES NOT HAVE TO GO DOWN THERE. PT REPORTS THAT SHE USES A CANE TO ASSIST WITH AMBULATION. PT REPORTS HAVING A GRAB BAR IN THE SHOWER. PT STATES THAT HER PCP IS DR. TOMMY SKELTON. PT REPORTS SHE HAS NOT HAD HH IN THE PAST NOR BEEN TO A POST ACUTE CARE STAY. PT IS TO HAVE MRI OF HER HIP. ORTHO HAS ALSO BEEN CONSULTED TO SEE PATIENT. CM WILL CONTINUE TO FOLLOW TO ASSIST NEEDED.
[2020-12-17 15:40] VITALS: BP 153/57
[2020-12-17 19:35] VITALS: BP 153/81
--- NOTE | 2020-12-17 19:38 | NUR ---
Pt AXOX4, contacted regarding HGB of 6.4. 1 unit of Packed RBC's ordered. Blood given per protocol. Pt was on room air with dimished lung sounds. She is experiencing pain in bilateral lower extremities due to cellulitus. IV in right FA for infusing IV antibiotics. Using periwick for incontinence of bladder. No BM today. Pt remains on bedrest has electronic wheelchair at home and in room. Wound care performed on bilateral feet per order and REWRITER. Low blood sugars today so held glipiizide in am. Pt eating minimal amount encouraged to eat and drink more water. Bed in low position and fall precautions in place.
--- NOTE | 2020-12-17 20:30 | NUR ---
Assumed care of pt at 0700. Pt a&ox4. C/o pain in right hip. Prn pain meds administered. MRI and X-ray ordered on rt hip. Pt unble to tolerate MRI. Provider notified. New pain medicine orders noted to be given prior to MRI. Medications administered and patient able to have MRI and X-ray. Provider calls with hip + pelvis xray results. Ortho and primary care doctor notified. Call light within reach. Pt calls appropriatelly. Report given to nayla BONNER.
[2020-12-17 21:25] VITALS: BP 153/81
[2020-12-17 21:55] VITALS: BP 170/82
--- NOTE | 2020-12-18 03:10 | NUR ---
*LATE ENTRY* ON 12/16/20 AT 2155, PT ASSESSED AOX4. PT REPORTS 10/10 RLE AND GROIN PAIN. PT RECEIVING PRN IV MORPHINE Q4HR AND PRN PO OXYCODONE Q4HR. PT DENIES SOB WHILE ON ROOM AIR. PT TOLERATING PO INTAKE OF FLUIDS AND REGULAR DIET WITHOUT ISSUE. PT WITH INTERMITTENT NAUSEA WITHOUT EMESIS. PT AMBULATING INDEPENDENTLY WITH CANE, STEADY GAIT OBSERVED, RESTING IN BED OTHERWISE. FREQUENT REPOSITIONING ENCOURAGED WHILE IN BED, PT NOTED TO SHIFT INDEPENDENTLY WHILE IN BED. SENSATION INTACT, CAPILLARY REFILL LESS THAN 3SEC, AND PERIPHERAL PULSES PALPABLE IN ALL EXTREMITIES. PT REPORTING PAIN MEDICATIONS INEFFECTIVE, PAIN REMAINS 10/10. ONCALL ARBORICULTURE INSTRUCTOR NOTIFIED, RECEIVED ORDERS FOR DAILY TOPICAL LIDOCAINE PATCH. UPON REASSESSMENT, PT CONTINUES WITH UNMANAGED PAIN 10/10 IN RLE AND GROIN. PRIMARY PROVIDER TO BE NOTIFIED IF PT NEEDS NOT MET PER SHIFT REPORT. DR. SKELTON NOTIFIED, RECEIVED ORDERS TO D/C PREVIOUS ORDER FOR OXYCODONE, START PO PRN OXYCODONE Q3HR, ADVISED TO NOTIFY IF NEW ORDERS INEFFECTIVE. UPON REASSESSMENT, PT REPORTS PARTIAL RELIEF WITH INTERMITTENT PERIODS OF SLEEP. PT ENCOURAGED TO NOTIFY STAFF FOR ALL NEEDS, CALL LIGHT WITHIN REACH, BED ALARM LOCKED IN LOWEST POSITION, FREQUENT MONITORING WILL CONTINUE.
[2020-12-18 04:20] VITALS: BP 155/72
[2020-12-18 07:13] VITALS: BP 147/87
--- NOTE | 2020-12-18 08:41 | NUR ---
UPON SHIFT ASSESSMENT, PT AOX4. PT REPORTS INCREASING PAIN FROM 5/10. PT RECEIVING PRN PO OXYCODONE Q3HR AND PRN IV MORPHINE Q4HR. PT DENIES SOB WHILE ON ROOM AIR. PT TOLERATING PO INTAKE OF FLUIDS AND REGULAR DIET WITHOUT ISSUE. PT WITH INTERMITTENT NAUSEA WITHOUT EMESIS. BOWEL SOUNDS HYPOACTIVE, PT DENIES FLATULENCE OR BOWEL MOVEMENT. REVIEWED EMAR, ONCALL DENTAL ASSISTING INSTRUCTOR NOTIFIED, RECEIVED ORDERS FOR PO COLACE BID EMESIS. PT AMBULATING WITH CANE IN ROOM AND TO BATHROOM INDPENDENTLY, RESTING IN BED OTHERWISE. FREQUENT REPOSITIONING ENCOURAGED WHILE IN BED, PT NOTED TO SHIFT INDEPENDENTLY. SENSATION INTACT, CAPILLARY REFILL LESS THAN 3SEC, PERIPHERAL PULSES PALPABLE IN ALL EXTREMITIES. PT ENCOURAGED TO NOTIFY STAFF FOR ALL NEEDS, CALL LIGHT WITHIN REACH, BED LOCKED IN LOWEST POSITION, FREQUENT MONITORING WILL CONTINUE.
[2020-12-18 11:32] LABS: MCH 30.2 pg (26.0-34.0); RBC 3.56 mil/uL (4.20-5.00)
[2020-12-18 11:34] LABS: HEMATOCRIT 33.4 % (37.0-47.0); HEMOGLOBIN 10.7 gm/dL (12.0-15.0); MCHC 32.2 g/dL (28.0-37.0); MCV 93.9 fL (80.0-100.0); RDW 13.8 % (10.5-14.5); WBC 17.7 thou/uL (4.0-11.0)
--- NOTE | 2020-12-18 11:41 | NUR ---
Pt. is AXOX4 on room air. Lungs diminished no cough noted. Pt is itching on chest area. Contacted received orders symptoms relieved.
[2020-12-18 12:03] LABS: ALBUMIN 2.7 g/dL (3.4-5.0); CALCIUM 9.2 mg/dL (8.5-10.1); CREATININE 1.5 mg/dL (0.6-1.0); MAGNESIUM 1.8 mg/dL (1.8-2.4); POTASSIUM 4.3 mmol/L (3.5-5.1); TOTAL BILIRUBIN 0.2 mg/dL (0.2-1.0); TOTAL PROTEIN 7.5 g/dL (6.4-8.2)
[2020-12-18 12:39] LABS: ABSOLUTE NEUTROPHILS 9.9 thou/uL (1.4-8.2); ANISOCYTOSIS 1+; PLATELET COUNT 325 thou/uL (150-400)
[2020-12-18 16:38] VITALS: BP 178/84
[2020-12-18 20:44] VITALS: BP 175/71
[2020-12-18 22:59] LABS: CALCIUM 9.3 mg/dL (8.5-10.1); CREATININE 1.6 mg/dL (0.6-1.0); POTASSIUM 4.6 mmol/L (3.5-5.1)
[2020-12-19 05:38] LABS: CALCIUM 9.3 mg/dL (8.5-10.1); CREATININE 1.4 mg/dL (0.6-1.0); INR 0.91; MAGNESIUM 1.9 mg/dL (1.8-2.4); POTASSIUM 4.6 mmol/L (3.5-5.1)
[2020-12-19 05:58] LABS: ABSOLUTE NEUTROPHILS 5.7 thou/uL (1.4-8.2); BASOPHILS 0.5 % (0.0-2.0); EOSINOPHILS 1.3 % (0.0-3.0); LYMPHOCYTES 36.2 % (24.0-44.0); MCH 29.1 pg (26.0-34.0); MCHC 29.1 g/dL (28.0-37.0); MONOCYTES 3.8 % (1.0-8.0); POLYS 58.2 % (36.0-66.0); RBC 4.39 mil/uL (4.20-5.00); RDW 15.1 % (10.5-14.5); WBC 9.7 thou/uL (4.0-11.0)
--- NOTE | 2020-12-19 06:07 | NUR ---
PT LYING ON HER BED WITH HER EYES CLOSED AT SHIFT CHANGE.PER REPORT,PT IS NOT SUPPOSED TO GET ANY IV ABX UNTIL SEEN BY DR PINZON.THE PHYSICAIN ROUNDED ON PT AT HS.ORDER NOTED FOR ASPIRATION OF HER R HIP BY IR POSSIBLY TODAY.PT AWARE.NO IV ABX TO BE GIVEN UNTIL THIS TEST IS PERFORMED.PAIN MANAGED WITH IV AND PO MED.PT UP WITH ASSIST.PT RESTING ON HER BED AT THIS TIME.CALL LIGHT WITHIN REACH.
[2020-12-19 06:16] LABS: HEMOGLOBIN 12.8 gm/dL (12.0-15.0); MCV 100.2 fL (80.0-100.0); PLATELET COUNT 233 thou/uL (150-400)
[2020-12-19 11:27] VITALS: BP 132/75
[2020-12-19 12:30] VITALS: BP 165/80
--- NOTE | 2020-12-19 14:00 | NUR ---
PT ASSESSED AT START OF SHIFT. STILL HAVING MUCH PAIN IN RT HIP JOINT AND DOWN LEG. MEDS HELPING SOME AT TIMES. PT CALLING OUT WHEN WANTING TO GET OUT OF BED SHE UNDERSTANDS SHE IS AT RISK FOR FALLING. APPROXIMATELY 1105 PT CALLED TO SAY HER LT ARM AND CHEST ACHING. RAPID RESPONSE TEAM ARRIVED WELL DR. WILKINS. PT ASSESSED AND TREATED W/ ONE NITROGLYCERIN- NO CHANGE IN PAIN BUT DID HAVE LARGE DROP IN SYSTOLIC BP SO NO FURTHER DOSES GIVEN. BP JOVON BACK UP AN HOUR LATER AND METOPROLOL GIVEN PER ORDERS. ORDERS TO TRANSFER PT TO CCU. REPORT GIVEN TO ACCEPTING RN AND PT TRANSFERRED AT THIS TIME PER W/C W/ ALL BELONGINGS.
[2020-12-19 14:10] VITALS: BP 138/95
--- NOTE | 2020-12-19 14:41 | EKG ---
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
[2020-12-19 15:20] VITALS: BP 173/75
--- NOTE | 2020-12-19 15:33 | NUR ---
A #4F SINGLE LUMEN POWER PICC WAS PLACED PER HOSPITAL POLICY AFTER A BEDSIDE TIMEOUT WAS COMPLETED. THE RIGHT BASILIC VEIN WAS DEEP BUT WIDLEY PATENT. THE LINE WAS TRIMMED TO 45CM ANDADVANCED WITHOUT DIFFICULTY. THE LINE WAS CONFIRMED AT 2CM EXTERNAL USING SHERLOCK 3CG. THE LINE WAS SECURED AND RELEASED FOR USE
[2020-12-19 19:34] VITALS: BP 153/82
[2020-12-20 04:34] VITALS: BP 171/83
[2020-12-20 07:20] VITALS: BP 164/80
--- NOTE | 2020-12-20 07:27 | NUR ---
PAIN POORLY CONTROLLED.UP TO THE BEDSIDE COMMODE.NO BM THIS SHIFT.MONITOR SHOWS SR.POC CONTINUED.
[2020-12-20 08:57] LABS: CREATININE 1.2 mg/dL (0.6-1.0); POTASSIUM 4.4 mmol/L (3.5-5.1)
[2020-12-20 09:04] LABS: CHOLESTEROL 121 mg/dL (<200); HDL CHOLESTEROL 44 mg/dL (>40); LDL CHOLESTEROL 55 mg/dL (<100); TC:HDL 2.8 Ratio (Not establshd); TRIGLYCERIDE 114 mg/dL (<150); VLDL 23 mg/dL (<40)
[2020-12-20 09:32] LABS: APTT 26.7 Seconds (24.5-32.8); INR 0.94; PROTIME 10.3 Seconds (10.5-12.1)
[2020-12-20 11:20] VITALS: BP 172/86
--- NOTE | 2020-12-20 13:37 | 2DMMODE ---
[facility] [place] [address] 2 D/M-MODE ECHOCARDIOGRAM Name: ANNE TSANG Room #: 213-P ADM IN M.R.#: [id number] Admission: 12/16/20 Attend Phys: Reza Amaya MD Discharge: Date of : 55 Report #: [id number] THIS REPORT FOR: cc: Wally Hussein MD, Stanley P. MD Santiago, Patrick MD [facility] ~ APPROVED REPORT Study performed: 12/20/2020 09:34:39 EXAM: Comprehensive 2D, Doppler, and color-flow Echocardiogram Patient Location: Bedside Room #: 213 Status: routine BSA: 2.28 HR: 74 bpm BP: 164/80 mmHg Other Information Study Quality: Adequate Indications Diabetes Chest Pain Hypertension/HDD 2D Dimensions IVSd: 13.59 (7-11mm) LVOT Diam: 19.38 (18-24mm) LVDd: 40.19 mm PWd: 12.55 (7-11mm) Ascending Ao: 30.56 (22-36mm) LVDs: 24.46 (25-40mm) Left Atrium: 33.86 (27-40mm) Aortic Root: 30.16 mm IVC: 15.00 mm Aortic Valve AoV Peak Herson.: 1.32 m/s AO Peak Gr.: 6.93 mmHg LVOT Max P.80 mmHg LVOT Max V: 1.10 m/s ANISA Vmax: 2.45 cm2 Mitral Valve E/A Ratio: 0.6 MV Decel. Time: 274.79 ms MV E Max Herson.: 0.59 m/s [facility] [address] [place] [address] 2 D/M-MODE ECHOCARDIOGRAM Name: ANNE TSANG Sheyla Room #: 213-P [facility] IN [facility]#: [id number] Admission: 12/16/20 Attend Phys: Reza Amaya MD Discharge: Date of : 55 Report #: [id number] MV A Herson.: 0.94 m/s MV PHT: 79.69 ms IVRT: 138.41 ms Pulmonary Valve PV Peak Herson.: 1.05 m/s PV Peak Gr.: 4.37 mmHg Pulmonary Vein P Vein S: 0.56 m/s P Vein A: 0.25 m/s P Vein D: 0.39 m/s P Vein A Dur.: 147.6 msec P Vein S/D Ratio: 1.44 Tricuspid Valve TR Peak Herson.: 2.88 m/s TR Peak Gr.: 33.21 mmHg Left Ventricle The left ventricle is normal size. Mild concentric left ventricular hypertrophy. The left ventricular systolic function is normal. The left ventricular ejection fraction is within the normal range. LVEF is 60-65%. The left ventricular diastolic function is normal. Right Ventricle The right ventricle is normal size. The right ventricular systolic function is normal. Atria The left atrium size is normal. The right atrium size is normal. Aortic Valve The aortic valve is normal in structure. No aortic regurgitation is present. There is no aortic valvular stenosis. Mitral Valve The mitral valve is normal in structure. There is no mitral valve regurgitation noted. No evidence of mitral valve stenosis. Tricuspid Valve The tricuspid valve is normal in structure. There is mild tricuspid regurgitation.Estimated pap 43 mmHg. There is mild pulmonary hypertension. Pulmonic Valve The pulmonary valve is normal in structure. There is no pulmonic valvular regurgitation. [facility] [place] [address] 2 D/M-MODE ECHOCARDIOGRAM Name: ANNE TSANG Sheyla Room #: 213-P ADM IN M.R.#: [id number] Admission: 12/16/20 Attend Phys: Reza Amaya MD Discharge: Date of : 55 Report #: [id number] Great Vessels The aortic root is normal in size. IVC is dilated and collapses >50% with inspiration. Pericardium There is no pericardial effusion. <Conclusion> Normal left ventricular size Mild left ventricular concentric hypertrophy Ejection fraction 55% Normal right ventricular size/function Normal atrial size Normal aortic/mitral valve structure and function Mild tricuspid valve insufficiency Pulmonary systolic pressure estimated 43 mmHg No pericardial effusion <ELECTRONICALLY SIGNED> By: Benedict Barclay MD, [facility] 12/20/20 1336 1336 1336 Benedict Barclay MD, FACC /INF
--- NOTE | 2020-12-20 13:44 | NUR ---
PT ALERT AND ORIENTED TIMES FOUR. VSS SR ON TELE. PT C/O PAIN PRN PAIN MEDICATIONS GIVEN WITH SOME RELEIF. PT HAS A RIGHT HIP ASPRIATION DONE TODAY. PT TOLERATES MEDS AND MEALS. PT UP SITTING IN THE CHAIR FOR SOME PART OF THE DAY. [place]O CONTINUE TO MONITOR.
[2020-12-20 15:30] VITALS: BP 188/71
[2020-12-20 15:43] LABS: CLARITY HAZY; COLOR DARK YELLOW; TOTAL VOLUME 2 mL
[2020-12-20 15:56] LABS: BF NUCLEATED CELLS 230 /mm3; BF RBC 4220 /mm3
[2020-12-20 17:00] LABS: BF MACROPHAGE 27 %
[2020-12-20 17:01] LABS: BF NEUTROPHILS 37 %
[2020-12-20 21:40] VITALS: BP 147/57
[2020-12-21 04:45] VITALS: BP 153/66
--- NOTE | 2020-12-21 05:51 | NUR ---
NPO SINCE MIDNIGHT FOR STRESS TEST TODAY.BM X 1.PAIN WELL CONTROLLED.MONITOR SHOWS SR.POC CONTINUED.
[2020-12-21 07:40] VITALS: BP 150/58
[2020-12-21 09:04] LABS: SOURCE SYNOVIAL
[2020-12-21] MEDS ORDERED: FLEXERIL PO (10:13)
[2020-12-21] MEDS ORDERED: BENICAR20 MG PO (10:14)
[2020-12-21] MEDS ORDERED: BYSTOLIC10 MG PO (10:14)
[2020-12-21] MEDS ORDERED: OXYCODONE HCL10 MG PO (10:15)
[2020-12-21] MEDS ORDERED: PREDNISONE 20 M20 MG PO (10:16)
--- NOTE | 2020-12-21 10:22 | NUR ---
SPOKE WITH PT. FROM [phone] REGARDING OT NEEDS. PT. DECLINES FURTHER OT SERVICES, STATING PLANS TO HAVE FAMILY ASSIST WITH SELF-CARES NEEDED. PLEASE RE-CONSULT IF PT. CHANGES HER MIND AND WANTS FURTHER OT SERVICES. OT RECOMMENDS HOME AT D/C.
[2020-12-21 10:49] VITALS: BP 155/50
--- NOTE | 2020-12-21 16:48 | NUR ---
Met with patient who is discharging today. Discussed home health ordered and their care in home. Patient reports she is familiar with home health care and does not want, declined service. Phys notified and RN.
[2020-12-21 17:07] LABS: ANA INTERPRETATION Negative (Negative)
== END 2020-12-21 17:20 | disposition home or self-care (01) | DRG 553 ==
LOC: 4S 17:17 → 2N 18:31 → 4S 18:31 → 2N 12-19 13:53
PROVIDERS: Internal Medicine; Nurse Practitioner Adult Health; Radiology Diagnostic Radiology; Specialist; ADMIT Hospitalist; ATTEND Hospitalist
PROC: B548ZZA Ultrasonography of Superior Vena Cava, Guidance (ICD-10-PCS; principal; 2020-12-19)
PROC: 02HV33Z Insertion of Infusion Device into Superior Vena Cava, Percutaneous Approach (ICD-10-PCS; principal; 2020-12-19)
PROC: 0SB Lower Joints, Excision (ICD-10-PCS; 2020-12-20)
DX: M16.11 Unilateral primary osteoarthritis, right hip (principal); E43 Unspecified severe protein-calorie malnutrition; N17.0 Acute kidney failure with tubular necrosis; Z68.44 Body mass index [BMI] 60.0-69.9, adult; E66.01 Morbid (severe) obesity due to excess calories; D72.829 Elevated white blood cell count, unspecified; N18.9 Chronic kidney disease, unspecified; I12.9 Hypertensive chronic kidney disease with stage 1 through stage 4 chronic kidney disease, or unspecified chronic kidney disease; M76.9 Unspecified enthesopathy, lower limb, excluding foot; R07.9 Chest pain, unspecified; Z88.1 Allergy status to other antibiotic agents; Z88.0 Allergy status to penicillin; Z79.899 Other long term (current) drug therapy; Z87.891 Personal history of nicotine dependence; Z90.710 Acquired absence of both cervix and uterus; Z90.49 Acquired absence of other specified parts of digestive tract
CPT/HCPCS: 10081; 10102; 10797; 27000

== ENCOUNTER 2021-03-11 19:12 | Inpatient (IN) | payer OTHER ==
[~2021-03-11] VITALS: Ht 157.5 cm; Wt 66.4 kg
[~2021-03-11 19:12] MED LIST changes: +BENICAR20 MG PO; +BYSTOLIC10 MG PO; +FLEXERIL PO; +OXYCODONE HCL10 MG PO
[2021-03-11 19:18] VITALS: BP 90/63
[2021-03-11 20:07] LABS: ABSOLUTE NEUTROPHILS 9.5 thou/uL (1.4-8.2); BASOPHILS 0.4 % (0.0-2.0); EOSINOPHILS 0.3 % (0.0-3.0); HEMATOCRIT 36.6 % (37.0-47.0); HEMOGLOBIN 12.2 gm/dL (12.0-15.0); LYMPHOCYTES 21.9 % (24.0-44.0); MCH 30.2 pg (26.0-34.0); MCHC 33.2 g/dL (28.0-37.0); MCV 91.1 fL (80.0-100.0); MONOCYTES 4.6 % (1.0-8.0); PLATELET COUNT 452 thou/uL (150-400); POLYS 72.8 % (36.0-66.0); RBC 4.02 mil/uL (4.20-5.00); RDW 14.3 % (10.5-14.5)
[2021-03-11 20:10] LABS: CALCIUM 9.4 mg/dL (8.5-10.1); CREATININE 1.7 mg/dL (0.6-1.0); POTASSIUM 4.2 mmol/L (3.5-5.1)
[2021-03-11 20:23] LABS: ALBUMIN 3.1 g/dL (3.4-5.0); DIRECT BILIRUBIN 0.1 mg/dL (<0.1-0.2); TOTAL BILIRUBIN 0.4 mg/dL (0.2-1.0); TOTAL PROTEIN 8.7 g/dL (6.4-8.2)
[2021-03-11 23:54] LABS: INR 1.04; PROTIME 11.3 Seconds (10.5-12.1)
[2021-03-12] VITALS (8 sets, daily range): BP systolic 99–190; BP diastolic 58–94
[2021-03-12 00:53] LABS: HEMATOCRIT 33.8 % (37.0-47.0); MCH 29.6 pg (26.0-34.0); MCHC 32.4 g/dL (28.0-37.0); MCV 91.3 fL (80.0-100.0); RBC 3.7 mil/uL (4.20-5.00); RDW 13.9 % (10.5-14.5); WBC 13.6 thou/uL (4.0-11.0)
[2021-03-12 07:30] LABS: CHOLESTEROL 140 mg/dL (<200); HDL CHOLESTEROL 42 mg/dL (>40); LDL CHOLESTEROL 75 mg/dL (<100); TC:HDL 3.3 Ratio (Not establshd); TRIGLYCERIDE 115 mg/dL (<150); VLDL 23 mg/dL (<40)
--- NOTE | 2021-03-12 07:52 | NUR ---
PHT ADMITTED TO RM 204 AT 0400, PT IS AWAKE, ALERT AND ORIENTEDX4, SR ON TELE, STILL C/O EPIGASTRIC PAIN, MEDS GIVEN PER MAR WITH MINIMAL RELIEF, ADMISSION ASSESSMENT HX, EDUCATION COMPLETED, HEPARIN INFUSING AT 12, PT STARTED ON IV ABX, PASSED ON REPORT TO DAY NURSE
[2021-03-12] MEDS ORDERED: FLEXERIL PO (07:58)
[2021-03-12] MEDS ORDERED: IRBESARTAN-HCT1 EAC1 PO (07:59)
[2021-03-12] MEDS ORDERED: PHENTERMINE H37.5 M1 PO (08:00)
[2021-03-12] MEDS ORDERED: ZANTAC-360 (FAM20 MG PO (08:00)
--- NOTE | 2021-03-12 14:13 | NUR ---
A RIGHT UPPER ARM PICC PLACED PER HOSPITAL POLICY AFTER A BEDSIDE TIMEOUT WAS COMPLETED. WRITTEN CONSENT WAS OBTAINED AND THE PATIENT VERBALIZED UNDERSTANDING OF BENIFITS AND RISKS FOR DVT AND INFECTION. THE BASILIC VEIN WAS CANNULATED BUT UNSBLE TO ADVANCE THE LINE INTO THE SVC. THE RIGHT CEPHALIC SHELLIE WAS ALSO CANNULATED AND THE 46CM LINE WAS ADVANCED TO THE CAJ WITH 2CM EXTERNAL. LINE WAS CONFIRMED WITH PEAKED PWAVES AT 2CM EXTERNAL. LINE WAS SECURED AND RELEASED FOR USE
--- NOTE | 2021-03-12 15:03 | EKG ---
[facility] [address] [place] [address] ELECTROCARDIOGRAM REPORT Name: ANNE TSANG Room #: 204-P ADM IN M.R.#: [id number] Admission: 03/12/21 Attend Phys: Alphonso Vo Discharge: Date of : 55 Report #: [id number] [facility] ED Test Date: 2021-03-11 Test Time: 19:22:34 Pat Name: ANNE TSANG Department: Room: 204 Gender: F Resident Intern: OLI : 1955 Requested By: Jimbo Amador Order Number: [id number] MD: David Espino Measurements Intervals [place] Rate: 123 P: 49 CA: 149 QRS: 2 QRSD: 78 T: 10 QT: 330 QTc: 472 Interpretive Statements Sinus tachycardia Left ventricular hypertrophy Baseline wander in lead(s) III Compared to ECG 12/19/2020 11:14:13 Left ventricular hypertrophy now present Heart rate has increased Electronically Signed On 03-12-2021 15:03:16 CDT by David Espino [email or web address] <ELECTRONICALLY SIGNED> By: David Espino MD, [facility] 03/12/21 1503 21 21 David Espino MD, [facility] /EPI
--- NOTE | 2021-03-12 15:04 | EKG ---
[address] [place] [address] ELECTROCARDIOGRAM REPORT Name: ANNE TSANG Room #: 204- ADM IN M.R.#: [id number] Admission: 03/12/21 Attend Phys: Alphonso Vo Discharge: Date of : 55 Report #: [id number] [facility] ED Test Date: 2021-03-11 Test Time: 21:28:53 Pat Name: ANNE TSANG Department: Room: 204 Gender: F Director Compensation: : 1955 Requested By: Jimbo Amador Order Number: [id number] MD: David Espino Measurements Intervals [place] Rate: 116 P: 45 NM: 161 QRS: -9 QRSD: 77 T: 1 QT: 343 QTc: 477 Interpretive Statements Sinus tachycardia Nonspecific ST segment abnormality Compared to ECG 03/11/2021 19:22:34 No significant changes Electronically Signed On 03-12-2021 15:04:15 CDT by David Espino [email or web address] <ELECTRONICALLY SIGNED> By: David Espino MD, FACC 03/12/21 1504 2128 2128 David Espino MD, FACC /EPI
[2021-03-12 18:51] LABS: URINE BILIRUBIN NEGATIVE (Negative); URINE BLOOD NEGATIVE (Negative); URINE CLARITY CLEAR; URINE COLOR YELLOW; URINE GLUCOSE-RANDOM* NEGATIVE (Negative); URINE KETONES NEGATIVE (Negative); URINE LEUKOCYTES-REFLEX NEGATIVE (Negative); URINE NITRITE-REFLEX NEGATIVE (Negative); URINE PROTEIN (DIPSTICK) NEGATIVE (Negative); URINE UROBILINOGEN 0.2 E.U./dl (0.2-1.0)
[2021-03-12 23:05] LABS: GLYCOHEMOGLOBIN (HGB A1C) 6.1 % (4.8-5.6)
--- NOTE | 2021-03-13 02:58 | NUR ---
PT IS ALERT AND ORIENTED X4. LUNGS ARE CLEAR TO DIMINISHED. PT COMPLAINS OF HIP PAIN HAS PAIN MEDS ON THE MAR FOR COMFORT. ENCOURAGE PT TO REST. ABDOMEN IS ROUND PT IS OBESE. COMPLAINS OF EPIGASTRIC AND NAUSE NOTED. NAUSEA MEDS GIVEN. RESOLVED. AND PT SLEEPING NOW. CALL LIGHT WITHIN REACH
[2021-03-13 04:54] LABS: HEMOGLOBIN 9.8 gm/dL (12.0-15.0); MCH 29.8 pg (26.0-34.0); MCHC 32.6 g/dL (28.0-37.0); MCV 91.4 fL (80.0-100.0); RBC 3.28 mil/uL (4.20-5.00); RDW 14.1 % (10.5-14.5); WBC 11.9 thou/uL (4.0-11.0)
[2021-03-13 05:10] LABS: CALCIUM 8.4 mg/dL (8.5-10.1); CREATININE 1.6 mg/dL (0.6-1.0); POTASSIUM 3.5 mmol/L (3.5-5.1)
[2021-03-13 07:37] VITALS: BP 103/66
[2021-03-13 12:59] VITALS: BP 111/67
[2021-03-13 15:25] VITALS: BP 112/58
[2021-03-13 19:31] VITALS: BP 118/59
[2021-03-14 04:36] VITALS: BP 127/64
--- NOTE | 2021-03-14 06:38 | NUR ---
ASSUMED PT CARE AT 1900, ALERT AND ORIENTEDX4, SR ON TELE, C/O HIP AND KNEE PAIN. PRN PAIN MEDS GIVEN WITH PARTILA RELIEF, TECHNOLOGY APPLICATIONS CONSULTANT NOTIFIED, ORDERS FOR XRAY RECEIVED, MEDS GIVEN PER AUG, ASSESSMENTS CHARTED, REMAINED NPO FOR STRESS THIS TODAY, NO NEEDS AT THIS TIME, SARAH PASS ON REPORT
[2021-03-14 07:59] VITALS: BP 115/66
[2021-03-14 16:20] VITALS: BP 119/58
[2021-03-14 19:37] VITALS: BP 117/77
[2021-03-15 00:01] LABS: HEMATOCRIT 28.1 % (37.0-47.0); HEMOGLOBIN 8.9 gm/dL (12.0-15.0); MCH 29.7 pg (26.0-34.0); MCHC 31.8 g/dL (28.0-37.0); MCV 93.6 fL (80.0-100.0); RBC 3.01 mil/uL (4.20-5.00); RDW 14.2 % (10.5-14.5); WBC 9.3 thou/uL (4.0-11.0)
[2021-03-15 03:57] VITALS: BP 132/50
--- NOTE | 2021-03-15 04:01 | NUR ---
pt alert and oriented, sr on tele, c/o hip/knee pain. pain meds givenx2 with minimal relief, assessments as charted, meds given as per aug, 2nd part of stress test today, no needs at this time, will continue to monitor
[2021-03-15 04:44] LABS: HEMATOCRIT 27.1 % (37.0-47.0); HEMOGLOBIN 8.8 gm/dL (12.0-15.0); MCHC 32.4 g/dL (28.0-37.0); MCV 92.7 fL (80.0-100.0); RBC 2.93 mil/uL (4.20-5.00); RDW 13.9 % (10.5-14.5); WBC 8.6 thou/uL (4.0-11.0)
[2021-03-15 04:48] LABS: CALCIUM 8.2 mg/dL (8.5-10.1); CREATININE 1.4 mg/dL (0.6-1.0); POTASSIUM 4.2 mmol/L (3.5-5.1)
[2021-03-15 07:35] VITALS: BP 147/72
--- NOTE | 2021-03-15 13:30 | NUR ---
PT IS AXOX4, PLEASANT; VSS, AFEBRILE, SR ON THE MONITOR. C/O PAIN IN RIGHT HIP AND KNEE AREA; RX OXYCODONE PROVIDED FOR PAIN MGMT. PT COMPLETED SECOND PART OF NUC STRESS TEST THIS AM. DR EATON CONSULTED, GI CONSULTED. AWAITING RESULTS OF TESTING FOR POSSIBLE EGD. FALL PRECAUTIONS IN PLACE, PT IS SBA WITH CANE, BUT PAINFUL AFTER SOME TIME WALKING. NPO FOR LUNCH WHILE AWAITING RESULTS.
[2021-03-15 16:05] VITALS: BP 125/63
[2021-03-15 20:01] VITALS: BP 149/77
[2021-03-16 03:42] VITALS: BP 129/68
--- NOTE | 2021-03-16 07:44 | NUR ---
assumed pt care at 1900, alert and orientedx4, sr/pac on tele, pain to the r.knee/hip and to the epigastric, pain meds given with minimal relief, assessments as charted, remained npo for EGD today, sister called and updated plan of care. sister is requesting updates from the doctor, no acute distress, pass on report to day nurse
[2021-03-16 07:56] VITALS: BP 124/64
[2021-03-16 11:00] VITALS: BP 131/68
[2021-03-16] MEDS ORDERED: BAYER CHEWABLE81 MG PO (16:58)
[2021-03-16] MEDS ORDERED: CEFDINIR300 MG PO (16:59)
[2021-03-16 18:19] VITALS: BP 131/68
--- NOTE | 2021-03-16 19:43 | NUR ---
Patient is A/OX4, vss afebrile. normal SR. C/O pain in right knee and hip that is chronic. Prn Oxy given and effective. Pt NPO most of the day for EGD. After EGD patient was able to eat dinner with out difficulty. Patient discharged home after EGD, order given by Dr. Schumacher. Education on medication and follow up appointments given. Patient verbalized full understanding at this time. PICC removed from right upper arm. Patient went home via cab. cab voucher provided.
--- NOTE | 2021-03-18 15:07 | PATH ---
[facility] [address] [address] PATHOLOGY RPT PROCEDURE Name: PREETI TSANG Sheyla Room #: 204-P DIS IN M.R.#: [id number] Admission: 03/12/21 Date of : 55 Discharge: 03/16/21 Report #: [id number] Path Case #: [id number] [facility] Accession Number: [id number] . 01 Material submitted: . stomach - GASTRIC BIOPSY HO H.PYLORI. Modifiers: GASTRIC . 01 Clinical history: . EGD ABDOMINAL PAIN DUODINITIS LUNG MASS, NSTEMI . 02 Diagnosis: Gastric mucosa (biopsy): - Mild chronic gastritis, mild activity, negative for dysplasia, negative for intestinal metaplasia, negative for Helicobacter-like organisms. LBQ 03/18/2021 1159 Local . 02 Comment: IHC for H. pylori on A1: Negative (LELA/kelli; 03/18/2021) . 02 Electronically signed: . Dinh Mccann MD, Pathologist NPI- [id number] . 01 Gross description: . he specimen is received in formalin, labeled "Preeti Tsang, gastric biopsy". Received is a segment of pale paez tissue measuring 0.4 cm in maximum dimensions. The specimen is submitted entirely in cassette A1. (CAA; 03/17/2021) QA/QA 03/17/2021 0933 Local . 02 Pathologist provided ICD-10: K29.50 . 02 CPT . 930801, E33722 Specimen Comment: A courtesy copy of this report has been sent to [phone] Specimen Comment: [phone], Specimen Comment: Report sent to , DR POST / DR SKELTON Performed at: 01 [facility] [address] [id number] MD Juan Daniel MD Phone: [phone] [place] [address] PATHOLOGY RPT PROCEDURE Name: PREETI TASNG Room #: 204-P [facility] IN M.R.#: [id number] Admission: 03/12/21 Date of : 55 Discharge: 03/16/21 Report #: [id number] Path Case #: [id number] Performed at: 02 [facility] [address] [id number] MD Dinh Mccann MD Phone: [phone]
--- NOTE | 2021-03-18 17:34 | P ---
[facility] [place] [address] [address] PROCEDURE REPORT Name: ANNE TSANG Room #: 204-P [facility] IN M.R.#: [id number] Admission: 03/12/21 Attend Phys: Alphonso Otto Gilda Discharge: 03/16/21 Date of : 55 Report #: [id number] THIS REPORT FOR: cc: Wally Hussein MD, Stanley P. MD Mc[place]hinney, Christian C. MD ~ cc: Evans Haines MD, Marquez Barrera MD, Chacorta Schumacher MD DATE OF SERVICE: 03/16/2021 PROCEDURE PERFORMED: Upper endoscopy with biopsies. HISTORY OF PRESENT ILLNESS: The patient is a 65-year-old female with a history of lower chest pain and midepigastric abdominal pain. Recent non-STEMI a stress test was negative. Cardiology is following. History of gastroesophageal reflux disease as well as previous history of peptic ulcer disease. The patient has been on PPI therapy. Her pain is improved somewhat. Plan is for upper endoscopy today. She denies any dysphagia. DESCRIPTION OF PROCEDURE: The risks and benefits of the procedure were explained to the patient, those risks including but not limited to bleeding, perforation and the risk of sedation. She understood these risks and gave informed consent. Sedation was given using propofol per anesthesia. Next, using a standard Olympus upper endoscope, the scope was placed in the patient's mouth and advanced under direct vision through the esophagus, stomach and into the second portion of the duodenum. The larynx was normal in appearance. The esophagus was normal throughout. The GE junction was normal. Overall, the gastric mucosa was normal. The pylorus was normal and patent. Mild duodenitis was noted in the duodenal bulb. The first and second portion of the duodenum were normal. The scope was then brought back up into the patient's stomach and biopsies were obtained today to rule out the possibility of H. pylori. The scope was then withdrawn and the procedure terminated. The patient tolerated the procedure well. IMPRESSION: 1. Mild duodenitis. 2. Otherwise, normal upper endoscopy. RECOMMENDATIONS: 1. Continue PPI therapy. 2. Await biopsy results. 3. Resume diet. [facility] [address] [place] [address] PROCEDURE REPORT Name: ANNE TSANG Sheyla Room #: 204-P DIS IN M.R.#: [id number] Admission: 03/12/21 Attend Phys: Alphonso Vo Discharge: 03/16/21 Date of : 55 Report #: [id number] Thank you for allowing me to participate in her care. <ELECTRONICALLY SIGNED> By: Reagan Ureña MD 03/18/21 1734 1414 0114 Reagan Ureña MD /nt
== END 2021-03-16 19:30 | disposition home or self-care (01) | DRG 280 ==
LOC: ER 19:12 → EROBS 03-12 02:49 → 2N 03-12 02:49
PROVIDERS: Hospitalist; Nurse Practitioner Family; Student in an Organized Health Care Education/Training Program; ADMIT Hospitalist; ATTEND Hospitalist
PROC: 05HY33Z Insertion of Infusion Device into Upper Vein, Percutaneous Approach (ICD-10-PCS; principal; 2021-03-12)
PROC: 0DB68ZX Excision of Stomach, Via Natural or Artificial Opening Endoscopic, Diagnostic (ICD-10-PCS; 2021-03-16)
DX: I21.4 Non-ST elevation (NSTEMI) myocardial infarction (principal); N17.0 Acute kidney failure with tubular necrosis; Z20.822 Contact with and (suspected) exposure to COVID-19; K29.80 Duodenitis without bleeding; R91.8 Other nonspecific abnormal finding of lung field; K21.9 Gastro-esophageal reflux disease without esophagitis; I10 Essential (primary) hypertension; D72.829 Elevated white blood cell count, unspecified; M16.11 Unilateral primary osteoarthritis, right hip; K25.9 Gastric ulcer, unspecified as acute or chronic, without hemorrhage or perforation; Z60.2 Problems related to living alone; E66.01 Morbid (severe) obesity due to excess calories; R91.1 Solitary pulmonary nodule; Z79.82 Long term (current) use of aspirin; Z90.710 Acquired absence of both cervix and uterus; Z90.49 Acquired absence of other specified parts of digestive tract; Z82.3 Family history of stroke; Z88.1 Allergy status to other antibiotic agents; Z88.0 Allergy status to penicillin; Z88.8 Allergy status to other drugs, medicaments and biological substances; Z87.891 Personal history of nicotine dependence; Z82.49 Family history of ischemic heart disease and other diseases of the circulatory system; Z83.3 Family history of diabetes mellitus; Z68.26 Body mass index [BMI] 26.0-26.9, adult; Z79.899 Other long term (current) drug therapy
CPT/HCPCS: 10081; 27000; 62110; 62900; 70005

== ENCOUNTER 2021-04-23 16:38 | Emergency (ER) | payer OTHER ==
[~2021-04-23] VITALS: Ht 157.5 cm; Wt 90.7 kg
[~2021-04-23 16:38] MED LIST changes: +BAYER CHEWABLE81 MG PO; +CEFDINIR300 MG PO; +IRBESARTAN-HCT1 EAC1 PO; +PHENTERMINE H37.5 M1 PO; +ZANTAC-360 (FAM20 MG PO
[2021-04-23 16:44] VITALS: BP 167/80
[2021-04-23 17:44] LABS: URINE BILIRUBIN NEGATIVE (Negative); URINE BLOOD NEGATIVE (Negative); URINE CLARITY CLEAR; URINE COLOR YELLOW; URINE GLUCOSE-RANDOM* NEGATIVE (Negative); URINE KETONES NEGATIVE (Negative); URINE LEUKOCYTES-REFLEX NEGATIVE (Negative); URINE NITRITE-REFLEX NEGATIVE (Negative); URINE PROTEIN (DIPSTICK) NEGATIVE (Negative); URINE SPECIFIC GRAVITY 1.025 (1.005-1.035); URINE UROBILINOGEN 0.2 E.U./dl (0.2-1.0)
[2021-04-23] MEDS ORDERED: MEDROLDOSEPACK PO (19:31)
--- NOTE | 2021-04-25 07:38 | EKG ---
[address] [place] [address] ELECTROCARDIOGRAM REPORT Name: NAA TSANGKI Carrion [id number] Admission: 04/23/21 Attend Phys: Discharge: 04/23/21 Date of : 55 Report #: [id number] [facility] ED Test Date: 2021-04-23 Test Time: 18:12:02 Pat Name: ANNE TSANG Department: Room: Gender: F Musical Instrument Supervisor: TG : 1955 Requested By: Destin Traylor Order Number: [id number] MD: Benedict Barclay Measurements Intervals [place] Rate: 90 P: 39 [place]: 183 QRS: 21 QRSD: 90 T: 42 QT: 342 QTc: 419 Interpretive Statements Sinus rhythm Compared to ECG 03/11/2021 21:28:53 Sinus tachycardia no longer present ST (T wave) deviation no longer present Electronically Signed On 04-25-2021 7:37:36 TOY DESIGNER by Benedict Barclay [email or web address] <ELECTRONICALLY SIGNED> By: Benedict Barclay MD, [facility] 04/25/21 0737 181 181 Benedict Barclay MD, FACC /EPI
== END 2021-04-23 20:40 | disposition home or self-care (01) ==
LOC: ER 16:38
PROVIDERS: Physician Assistant
DX: M54.50 Low back pain, unspecified (principal); Z90.710 Acquired absence of both cervix and uterus; Z90.49 Acquired absence of other specified parts of digestive tract; Z79.82 Long term (current) use of aspirin; Z79.899 Other long term (current) drug therapy; Z79.891 Long term (current) use of opiate analgesic; Z79.1 Long term (current) use of non-steroidal anti-inflammatories (NSAID); Z88.1 Allergy status to other antibiotic agents; Z88.0 Allergy status to penicillin; Z88.8 Allergy status to other drugs, medicaments and biological substances; Z87.891 Personal history of nicotine dependence